=== PATIENT | female | born 1950 | race Caucasian/White ===

== ENCOUNTER 2021-10-06 09:06 | Emergency (ER) | payer MEDICARE, OTHER, SELFPAY ==
[2021-10-06 09:30] VITALS: BP 142/98; PULSE 107; RESP 18; TEMP 37; O2SAT 96; BMI 31.4
--- NOTE | 2021-10-06 10:07 | HMH.EDUTC ---
[facility] [place] Clinical Impression: Sinusitis Qualifiers: Sinusitis location: unspecified location Chronicity: unspecified Qualified Code(s): J32.9 - Chronic sinusitis, unspecified Disposition: Home, Self-Care Condition on Discharge: Good Instructions: Sinusitis, DI for Sinusitis Additional Instructions: *Monitor Temp, Over the counter Motrin or Tylenol as directed/as needed Tylenol every 4 hours and Motrin every 6 hours (as long as your family doctor has told you that you can take it) for fever or pain. and straight to ER if unable to lower temp less than 101.0 after medication given *Warm salt water gargles may help to soothe the throat *Throat Lozenges *Warm fluids like tea with honey may help to soothe the throat *Sleep elevated *Humidifier/Vaporizer Stop the Amoxicillin and start the Augmentin but make sure that you are taking it with food to help prevent stomach upset Follow up IMMEDIATELY for new or worsening symptoms or no Noticeable improvement over the next 48-72 hours. 911 for difficulty breathing or swallowing You were tested for today for COVID19 your test result should be back in the next 48-72 hours, you may check your results on the [facility] My health portal If you are positive someone from the Hospital will be calling you Make sure to drink plenty of water and gatoraid and take vitamin C, D and zinc Prescriptions: Benzonatate [Benzonatate 100mg cap] 100 mg PO Q8HP PRN #15 cap PRN Reason: Cough Transmission Status: Received by [facility] #[id number] Amoxicillin/Potassium Clav [Augmentin 875-125 Tablet] 1 tab PO Q12H 7 Days #14 tab Transmission Status: Received by [facility] #[id number] Referrals: Provider,Referral, [Primary Care Provider] - As needed Time of Disposition: 10:26 Medical Decision Making - Arnoldo Inquiry Pt receiving controlled substance: No Arnoldo was queried for this patient: No Vital Signs: 10/06/21 09:30 10/06/21 10:30 Temperature 98.6 F 98.6 F Temperature Source Oral Pulse Rate 107 H Pulse Rate [Right Brachial] 107 H Respiratory Rate 18 18 Blood Pressure 142/98 H Blood Pressure [Right Arm] 142/98 H Blood Pressure Mean [Right Arm] 112 Blood Pressure Source [Right Arm] Automatic Cuff Blood Pressure Position [Right Arm] Sitting 02 Sat by Pulse Oximetry 96 Oxygen Delivery Method Room Air - Lab Data Lab Results 10/06/21 10:24: Chlamy pneumoniae PCR Not detected, Adenovirus (PCR) Not detected, B. pertussis DNA (PCR) Not detected, Coronavirus OC43 (PCR) Not detected, Coronavirus HKU1 (PCR) Not detected, Coronavirus 229E (PCR) Not detected, SARS-CoV-2 (PCR) Not detected, Coronavirus NL63 (PCR) Not detected, Human Metapneumovir PCR Not detected, Influenza A (H1) PCR Not detected, Influ A (H1N1/09) PCR Not detected, Influenza A (H3) PCR Not detected, Influenza Type A (PCR) Not detected, Influenza Type B (PCR) Not detected, M. pneumoniae (PCR) Not detected, Parainfluenza 1 (PCR) Not detected, Parainfluenza 2 (PCR) Not detected, Parainfluenza 3 (PCR) Not detected, Parainfluenza 4 (PCR) Not detected, RSV (PCR) Not detected, Entero/Rhino (PCR) Not detected [facility] [place] - General Stated complaint: tooth pulled week ago, h/a, fever, body aches Time Seen by Provider: 10/06/21 10:18 Mode of Arrival: Ambulatory Source of Information: Patient Limitations: No Limitations Description of Symptoms (Recalled from Triage Doc. by RN): PATIENT C/O HEADACHE, FEVER, AND WEAKNESS. SHE REPORTS SYMPTOMS STARTED AFTER SHE HAD AN ABSCESSED TOOTH EXTRACTED LAST WEEK HEENT Symptoms (Recalled from RN notes): Yes Resp Symptoms (Recalled from RN notes): No Skin Symptoms (Recalled from RN notes): No MS Symptoms (Recalled from RN notes): No Functional Status (Recalled from RN notes): WNL - History of Present Illness Provider Complaint: Patient states that she has had a little cough States that she recently had a tooth pulled and they give her Amoxicillin State that she has wilfrido
[2021-10-06 10:30] VITALS: BP 142/98; PULSE 107; RESP 18; TEMP 37; O2SAT 96
[2021-10-06 10:39] LABS: Adenovirus,PCR Not Detected (NotDetected); Bordetella Pertussis Not Detected (NotDetected); Chlamydophila Pneumoniae, PCR Not Detected (NotDetected); Coronavirus 19, PCR Not Detected (NotDetected); Coronavirus 229E Not Detected (NotDetected); Coronavirus NL63 Not Detected (NotDetected); Coronavirus OC43 Not Detected (NotDetected); Coronovirus HKU1,PCR Not Detected (NotDetected); Human Metapneumovirus Not Detected (NotDetected); Influenza A, PCR Not Detected (NotDetected); Influenza AH1, 2009 Not Detected (NotDetected); Influenza AH1, PCR Not Detected (NotDetected); Influenza AH3,PCR Not Detected (NotDetected); Influenza B, PCR Not Detected (NotDetected); Mycoplasma Pneumoniae, PCR Not Detected (NotDetected); Parainfluenza 1, PCR Not Detected (NotDetected); Parainfluenza 2, PCR Not Detected (NotDetected); Parainfluenza 3, PCR Not Detected (NotDetected); Parainfluenza 4, PCR Not Detected (NotDetected); Respiratory Syncytial Virus Not Detected (NotDetected); Rhinovirus/Enterovirus Not Detected (NotDetected)
== END 2021-10-06 10:35 | disposition home or self-care (01) ==
PROVIDERS: Emergency Provider Nurse Practitioner
DX: J32.9 Chronic sinusitis, unspecified (principal); Z20.822 Contact with and (suspected) exposure to COVID-19
CPT/HCPCS: G0463; 87581; 87632; 87798; 99202; C9803; U0003; U0005

== ENCOUNTER 2021-10-09 09:06 | Emergency (ER) | payer MEDICARE, OTHER, SELFPAY ==
[2021-10-09 09:14] VITALS: BP 133/65; PULSE 89; RESP 14; TEMP 36.6; O2SAT 95; BMI 31.1
--- NOTE | 2021-10-09 09:40 | HMH.EDUTC ---
[facility] [place] Clinical Impression: Migraine Qualifiers: Migraine type: without aura Status migrainosus presence: without status migrainosus Intractability: not intractable Qualified Code(s): G43.009 - Migraine without aura, not intractable, without status migrainosus Disposition: Home, Self-Care Condition on Discharge: Good Instructions: DI for Migraine Additional Instructions: Continue to monitor your symptoms at home. If your condition worsens or any other concerns arise, please return to the emergency department. Referrals: Provider,Referral, [Primary Care Provider] - Time of Disposition: 16:00 Medical Decision Making - Medical Records Medical records reviewed: No: I reviewed the patient's medical records. - Arnoldo Inquiry Pt receiving controlled substance: No Vital Signs: 10/09/21 09:14 10/09/21 10:27 10/09/21 14:00 Temperature 98 F 98.3 F 98 F Temperature Source Oral Oral Oral Pulse Rate 78 Pulse Rate [Left] 89 84 Respiratory Rate 14 18 18 Blood Pressure 142/74 H Blood Pressure [Right Arm] 133/65 146/94 H Blood Pressure Mean [Right Arm] 87 111 Blood Pressure Position Sitting Blood Pressure Position [Right Arm] Sitting 02 Sat by Pulse Oximetry 95 98 Oxygen Delivery Method Room Air Room Air - Lab Data Lab Results 10/09/21 09:46: Influenza Type A Ag Negative, Influenza Type B Ag Negative 10/09/21 09:46: Strep Scn Rapid [facility] Negative 10/09/21 11:25: WBC 7.9, RBC 5.37, Hgb 16.0, Hct 47.9 H, MCV 89.2, MCH 29.7, MCHC 33.3, RDW 12.8, Plt Count 355, MPV 7.9, Neut % (Auto) 71.0, Lymph % (Auto) 20.0, Antelope % (Auto) 6.1, Eos % (Auto) 2.3, Baso % (Auto) 0.7, Neut # (Auto) 5.6, Lymph # (Auto) 1.6, Antelope # (Auto) 0.5, Eos # (Auto) 0.2, Baso # (Auto) 0.1 10/09/21 11:25: Sodium 134 L, Potassium 4.4, Chloride 100, Carbon Dioxide 28, Anion Gap 10.4, BUN 21 H, Creatinine 0.90, Estimated Creat Clear 76, Estimated GFR 62, Est GFR ( Amer) 75, Glucose 90, Calcium 9.4, Total Bilirubin 1.1, AST 32, ALT 14, Alkaline Phosphatase 49, Total Protein 7.5, Albumin 4.4, Globulin 3.1, Albumin/Globulin Ratio 1.4 Result diagrams: 10/09/21 11:25 10/09/21 11:25 Orders (Tests/Meds): ED MEDICATIONS Discontinued Medications Generic Name Dose Route Start Last Admin Trade Name Freq PRN Reason Stop Dose Admin Hydromorphone HCl 0.5 mg 10/09/21 18:25 10/09/21 13:17 Hydromorphone 2mg/Ml Syringe IV 10/09/21 18:26 0.5 mg ONCE ONE Administration Prochlorperazine Edisylate 10 mg 10/09/21 11:01 10/09/21 12:00 Prochlorperazine 10mg/2ml Vial IV 10/09/21 11:02 10 mg ONCE ONE Administration ORDERS Category Date Time Status Strep Screen Confirmation Stat Micro 10/09/21 09:46 Received [facility] [place] HPI - General Stated complaint: weakness, JONES, muscle pain Time Seen by Provider: 10/09/21 09:41 Mode of Arrival: Ambulatory Source of Information: Patient Limitations: No Limitations Description of Symptoms (Recalled from Triage Doc. by RN): pt c/o a JONES, weakness and body aches. pt states she had a an abcess tooth taken out on the . HEENT Symptoms (Recalled from RN notes): Yes Resp Symptoms (Recalled from RN notes): No Skin Symptoms (Recalled from RN notes): No MS Symptoms (Recalled from RN notes): No Functional Status (Recalled from RN notes): wnl - History of Present Illness Provider Complaint: She is back today with continued headache. She states she has been having a continious headache for the past 4 days. She tested negative for covid-19, influenza and other respiratory viruses 3 days ago. - Related Data Previous Rx's Medication Instructions Recorded Amoxicillin/Potassium Clav 1 tab PO Q12H 7 Days #14 tab 10/06/21 [Augmentin 875-125 Tablet] Benzonatate [Benzonatate 100mg 100 mg PO Q8HP PRN #15 cap 10/06/21 cap] Allergies Allergy/AdvReac Type Severity Reaction Status Date / Time No Known Allergies Allergy Verified 10/06/21 09:57 - Worker's Comp I
[2021-10-09 09:59] LABS: UTC Strep Screen (Rapid) Negative (Negative)
[2021-10-09 10:00] LABS: UTC Influenza A Antigen Negative (Negative); UTC Influenza B Antigen Negative (Negative)
--- NOTE | 2021-10-09 10:24 | ECG_ITS ---
APPROVED REPORT Exam: Resting ECG HR:75 bpm ECG Measurements Heart Rate 75 AXES DE 175 P 47 QRSd 96 QRS 58 QT 357 T 5 QTc 386 Conclusion SINUS RHYTHM POSSIBLE LEFT ATRIAL ENLARGEMENT [-0.1mV P-WAVE IN V1/V2] NONSPECIFIC T-WAVE ABNORMALITY BORDERLINE ECG UNCONFIRMED REPORT Electronically signed by : Hans Cardozo MD 10/10/2021 17:28:14
[2021-10-09 10:27] VITALS: BP 146/94; PULSE 84; RESP 18; TEMP 36.8; O2SAT 98; BMI 31.1
--- NOTE | 2021-10-09 10:55 | CT_ITS ---
PROCEDURE INFORMATION: Exam: CT Head Without Contrast Exam date and time: 10/09/2021 10:55 AM Age: 71 years old Clinical indication: Dizziness; Additional info: JONES, dizziness TECHNIQUE: Imaging protocol: Computed tomography of the head without contrast. Radiation optimization: All CT scans at this facility use at least one of these dose optimization techniques: automated exposure control; mA and/or kV adjustment per patient size (includes targeted exams where dose is matched to clinical indication); or iterative reconstruction. COMPARISON: No relevant prior studies available. FINDINGS: Brain: Normal. No hemorrhage. Unremarkable white matter. No mass effect. Cerebral ventricles: No ventriculomegaly. Paranasal sinuses: Mild mucosal thickening of the right maxillary sinus. Mastoid air cells: Visualized mastoid air cells are well aerated. Bones/joints: Unremarkable. No acute fracture. Soft tissues: Unremarkable. IMPRESSION: No acute intracranial abnormality. Please note that MRI is more sensitive for early changes of acute ischemia.
--- NOTE | 2021-10-09 11:02 | PC.NURSE ---
pt to radiology
--- NOTE | 2021-10-09 11:08 | PC.NURSE ---
patient back from radiology. Warm blanket given to pt at this time. hooked back up to vital signs. call light within reach.
--- NOTE | 2021-10-09 12:00 | PC.NURSE ---
pt resting updated on plan of care
--- NOTE | 2021-10-09 12:12 | HMH.EDGENADL ---
ED Disposition Clinical Impression: Migraine Qualifiers: Migraine type: without aura Status migrainosus presence: without status migrainosus Intractability: not intractable Qualified Code(s): G43.009 - Migraine without aura, not intractable, without status migrainosus Disposition: Home, Self-Care Condition on Discharge: Good Additional Instructions: Continue to monitor your symptoms at home. If your condition worsens or any other concerns arise, please return to the emergency department. Referrals: Provider,Referral, [Primary Care Provider] - - Critical Care Critical Care Time: No Attestation: On 10/09/21, the high probability of a clinically significant, sudden or life threatening deterioration of the following system(s) required my full and direct attention, intervention and personal management. The time I documented below is in addition to time spent performing reported procedures but includes the following listed in this critical care notation. Medical Decision Making - Medical Records Medical records reviewed: Yes: I reviewed the patient's medical records. - Arnoldo Inquiry Pt receiving controlled substance: No Vital Signs: 10/09/21 09:14 10/09/21 10:27 Temperature 98 F 98.3 F Temperature Source Oral Oral Pulse Rate [Left] 89 84 Respiratory Rate 14 18 Blood Pressure [Right Arm] 133/65 146/94 H Blood Pressure Mean [Right Arm] 87 111 Blood Pressure Position [Right Arm] Sitting 02 Sat by Pulse Oximetry 95 98 Oxygen Delivery Method Room Air - Lab Data Lab Results 10/09/21 09:46: Influenza Type A Ag Negative, Influenza Type B Ag Negative 10/09/21 09:46: Strep Scn Rapid Clinic Negative 10/09/21 11:25: Sodium 134 L, Potassium 4.4, Chloride 100, Carbon Dioxide 28, Anion Gap 10.4, BUN 21 H, Creatinine 0.90, Estimated Creat Clear 76, Estimated GFR 62, Est GFR ( Amer) 75, Glucose 90, Calcium 9.4, Total Bilirubin 1.1, AST 32, ALT 14, Alkaline Phosphatase 49, Total Protein 7.5, Albumin 4.4, Globulin 3.1, Albumin/Globulin Ratio 1.4 Result diagrams: 10/09/21 11:25 Orders (Tests/Meds): ED MEDICATIONS Discontinued Medications Generic Name Dose Route Start Last Admin Trade Name Freq PRN Reason Stop Dose Admin Prochlorperazine Edisylate 10 mg 10/09/21 11:01 10/09/21 12:00 Prochlorperazine 10mg/2ml Vial IV 10/09/21 11:02 10 mg ONCE ONE Administration ORDERS Category Date Time Status Complete Blood Count Auto Diff Stat Lab 10/09/21 11:25 Received Blood Culture Stat Micro 10/09/21 10:55 Ordered Strep Screen Confirmation Stat Micro 10/09/21 09:46 Received Medical Decision Narrative: Patient is a 71-year-old female with a history of migraines presenting for chief complaint of persistent headache for 1 week. Differential diagnosis includes, but is not limited to, tension headache, migraine, status migrainosus, underlying infection, viral syndrome such as COVID-19. Initial exam, patient is hemodynamically stable nontoxic-appearing. She has a nonfocal neurological exam with intact cerebellar function. Patient is concerned for bacteremia though I have a low suspicion for underlying systemic infection. Exam of her oral cavity shows no abscess, drainage and she has no tenderness along her jaw which makes a dental infection unlikely. She has a negative jolt test, lowering the suspicion significantly for meningitis. She was evaluated CBC, CMP, blood cultures and CT head. She was treated with Compazine. CT head shows no acute intracranial findings. CMP without abnormalities. CBC pending at this time but patient is requesting to be discharged. She reports significant improvement, and does not need additional medications. She was advised to follow up with her primary care physician regarding labwork. Discharged in a stable condition. General Adult HPI - General Chief complaint: Headache Stated complaint: weakness, JONES, muscle pain Time Seen by Provider: 10/09/21 09:41 Mode of
[2021-10-09 12:26] LABS: Chloride 100 mmol/L (98-107); Potassium 4.4 mmoL/L (3.5-5.1); Sodium 134 mmol/L (136-145)
[2021-10-09 12:29] LABS: Alanine Aminotransferase 14 U/L (12-78); Albumin Level 4.4 g/dl (3.5-5.0); Albumin/Globulin Ratio 1.4 (1.1-1.8); Alkaline Phosphatase 49 U/L (38-126); Anion Gap 10.4 mEq/L (5-15); Aspartate Amino Transferase 32 U/L (14-36); Bilirubin,Total 1.1 mg/dl (0.2-1.3); Blood Urea Nitrogen 21 mg/dl (7-17); Carbon Dioxide 28 mmol/L (22.0-30.0); Creatinine Clearance Estimated 76 mL/min (50-200); Estimated Glomerular Filt Rate 62 ml/min (>60); GFR (African American) 75 ML/MIN (>60); Globulin 3.1 g/dL (1.3-3.2); Total Protein,Serum 7.5 g/dl (6.3-8.2)
[2021-10-09 12:30] LABS: Calcium 9.4 mg/dl (8.4-10.2); Glucose 90 mg/dl (74-100)
[2021-10-09 14:00] VITALS: BP 142/74; PULSE 78; RESP 18; TEMP 36.6; O2SAT 98
[2021-10-09 14:19] LABS: Basophils # 0.1 K/mm3 (0-0.2); Basophils % 0.7 % (0.1-2.0); Eosinophils # 0.2 K/mm3 (0.0-0.4); Eosinophils % 2.3 % (0.1-12.0); Hematocrit 47.9 % (37.0-47.0); Lymphocytes # 1.6 K/mm3 (0.7-4.5); Mean Corpuscular HGB Conc 33.3 g/dL (31.8-35.4); Mean Corpuscular Hemoglobin 29.7 pg (27.0-31.2); Mean Corpuscular Volume 89.2 fl (81-99); Mean Platelet Volume 7.9 fl (7.4-10.4); Monocytes # 0.5 K/mm3 (0.1-1.0); Monocytes % 6.1 % (1.7-9.3); Neutrophils # 5.6 K/mm3 (1.8-7.8); Platelet Count 355 K/mm3 (142-424); Red Blood Count 5.37 M/mm3 (4.20-5.40); Red Cell Distribution Width 12.8 % (11.5-17.5); White Blood Count 7.9 K/mm3 (4.8-10.8)
== END 2021-10-09 14:00 | disposition home or self-care (01) ==
LOC: UTC 09:12 → ER 10:18
PROVIDERS: Emergency Medicine; Emergency Provider Nurse Practitioner Family
DX: G43.009 Migraine without aura, not intractable, without status migrainosus (principal)
CPT/HCPCS: 70450; 80053; 85025; 87804; 87880; 93005; 96374; 96375; 99282

== ENCOUNTER → 2021-10-19 16:00 | Outpatient (CLI) | payer MEDICARE, OTHER, SELFPAY | PROVIDERS: Visit Provider Nurse Practitioner Family | DX: N39.0 Urinary tract infection, site not specified (principal) | CPT/HCPCS: 87086 ==

== ENCOUNTER → 2021-10-20 09:57 | Outpatient (CLI) | payer MEDICARE, OTHER, SELFPAY ==
--- NOTE | 2021-10-20 09:58 | MR_ITS ---
FINAL REPORT CLINICAL HISTORY: Migraines with history of breast cancer. HEADACHE X2WKS. DIZZINESS. PRIOR CT 10-09-21 FINDINGS: Multiplanar MR imaging of the brain was performed without contrast. There is no evidence of intracranial hemorrhage or mass. The ventricular size is normal. There is no evidence of shift of the midline structures. No area of restricted diffusion is identified. The posterior fossa and brainstem have an unremarkable appearance. Normal major vessel vascular flow voids are seen. There is mild mucosal thickening in the sinuses. IMPRESSION: Unremarkable brain with no focal abnormality identified. Reviewed, Interpreted and Dictated by Daljit Sung III, MD Transcribed by Silvina Valles Authenticated by Daljit Sung III, MD on 10/20/2021 11:41:13 AM [facility]
== END ==
PROVIDERS: PCP Nurse Practitioner Family; Visit Provider Nurse Practitioner Family
DX: G43.009 Migraine without aura, not intractable, without status migrainosus (principal)
CPT/HCPCS: 70551

== ENCOUNTER → 2021-11-01 12:04 | Outpatient (CLI) | payer MEDICARE, OTHER, SELFPAY ==
[2021-11-01 13:48] LABS: Thyroid Stimulating Hormone 0.64 uIU/mL (0.465-4.68)
[2021-11-01 14:22] LABS: Vitamin B12 336 pg/mL (239-931)
[2021-11-01 14:27] LABS: Folate 6.86 ng/mL
== END ==
PROVIDERS: PCP Nurse Practitioner Family; Visit Provider Nurse Practitioner Family
DX: G47.00 Insomnia, unspecified (principal); G47.9 Sleep disorder, unspecified; R03.0 Elevated blood-pressure reading, without diagnosis of hypertension; R40.0 Somnolence; R51.9 Headache, unspecified; Z86.69 Personal history of other diseases of the nervous system and sense organs; G47.33 Obstructive sleep apnea (adult) (pediatric)
CPT/HCPCS: 36415; 82607; 82746; 84443; G0399

== ENCOUNTER → 2022-04-07 11:45 | Outpatient (CLI) | payer MEDICARE, OTHER, SELFPAY ==
--- NOTE | 2022-04-07 11:50 | XR_ITS ---
FINAL REPORT CLINICAL HISTORY: knee pain FINDINGS: 4 views of the right knee were obtained. There is no prior exam for comparison. There is no acute fracture or dislocation. Degenerative joint disease is most pronounced in the patellofemoral compartment. There is mild osteopenia. The soft tissues are unremarkable. IMPRESSION: No acute osseous abnormality. Reviewed, Interpreted and Dictated by Natalie Galarza MD Transcribed by Mann Guerrero Authenticated and [facility]
--- NOTE | 2022-04-07 11:50 | XR_ITS ---
FINAL REPORT CLINICAL HISTORY: knee pain FINDINGS: 4 views of the left knee were obtained. There is no prior exam available for comparison. There is no acute fracture or dislocation. Degenerative joint disease is most pronounced in the patellofemoral compartment. The bones are osteopenic. The soft tissues are unremarkable. IMPRESSION: No acute process. Reviewed, Interpreted and Dictated by Natalie Galarza MD Transcribed by Mann Guerrero Authenticated and [facility]
== END ==
PROVIDERS: PCP Physician Assistant; Visit Provider Orthopaedic Surgery
DX: M25.561 Pain in right knee (principal); M25.562 Pain in left knee
CPT/HCPCS: 73564; 97760

== ENCOUNTER 2022-04-07 13:59 | Outpatient (RCR) | payer MEDICARE, OTHER, SELFPAY | END 2022-04-07 15:00 | disposition home or self-care (01) | LOC: PT 13:59 | PROVIDERS: Visit Provider Orthopaedic Surgery | DX: M17.0 Bilateral primary osteoarthritis of knee (principal) | CPT/HCPCS: 97760 ==

== ENCOUNTER → 2022-08-10 12:00 | Outpatient (CLI) | payer MEDICARE, OTHER, SELFPAY ==
[2022-08-10 14:27] LABS: Adenovirus,PCR Not Detected (NotDetected); Bordetella Pertussis Not Detected (NotDetected); Chlamydophila Pneumoniae, PCR Not Detected (NotDetected); Coronavirus 19, PCR Not Detected (NotDetected); Coronavirus 229E Not Detected (NotDetected); Coronavirus NL63 Not Detected (NotDetected); Coronavirus OC43 Not Detected (NotDetected); Coronovirus HKU1,PCR Not Detected (NotDetected); Human Metapneumovirus Not Detected (NotDetected); Influenza A, PCR Not Detected (NotDetected); Influenza AH1, 2009 Not Detected (NotDetected); Influenza AH1, PCR Not Detected (NotDetected); Influenza AH3,PCR Not Detected (NotDetected); Influenza B, PCR Not Detected (NotDetected); Mycoplasma Pneumoniae, PCR Not Detected (NotDetected); Parainfluenza 1, PCR Not Detected (NotDetected); Parainfluenza 2, PCR Not Detected (NotDetected); Parainfluenza 3, PCR Not Detected (NotDetected); Parainfluenza 4, PCR Not Detected (NotDetected); Respiratory Syncytial Virus Not Detected (NotDetected); Rhinovirus/Enterovirus Not Detected (NotDetected)
== END ==
PROVIDERS: PCP Nurse Practitioner Family; Visit Provider Nurse Practitioner Family
DX: N39.0 Urinary tract infection, site not specified (principal); Z20.822 Contact with and (suspected) exposure to COVID-19; B96.29 Other Escherichia coli [E. coli] as the cause of diseases classified elsewhere
CPT/HCPCS: 87086; 87088; 87186; 87581; 87632; 87798; C9803; U0003; U0005

== ENCOUNTER → 2022-10-13 09:01 | Outpatient (CLI) | payer MEDICARE, OTHER, SELFPAY ==
--- NOTE | 2022-10-13 09:09 | XR_ITS ---
FINAL REPORT CLINICAL HISTORY: knee pain COMPARISON: 04/07/2022 FINDINGS: Right knee Three views were obtained. There is no acute fracture or dislocation. There are mild and moderate degenerative changes, similar to previous. No joint effusion is identified. No soft tissue abnormality is identified. IMPRESSION: Degenerative changes without acute process. Reviewed, Interpreted and Dictated by Daljit Sung III, MD Transcribed by Melisa Carrillo Authenticated and [facility]
--- NOTE | 2022-10-13 09:09 | XR_ITS ---
FINAL REPORT CLINICAL HISTORY: knee pain COMPARISON: 04/07/2022 FINDINGS: Left knee Three views were obtained. There is no acute fracture or dislocation. There are mild and moderate degenerative changes, similar to previous. No joint effusion is identified. No soft tissue abnormality is identified. IMPRESSION: Degenerative changes without acute process. Reviewed, Interpreted and Dictated by Daljit Sung III, MD Transcribed by Melisa Carrillo Authenticated and [facility]
== END ==
PROVIDERS: PCP Emergency Medicine; Visit Provider Orthopaedic Surgery
DX: M25.561 Pain in right knee (principal); M25.562 Pain in left knee
CPT/HCPCS: 73562

== ENCOUNTER → 2023-01-24 23:16 | Outpatient (CLI) | payer MEDICARE, OTHER, SELFPAY ==
[2023-01-24 18:50] LABS: Basophils # 0.1 K/mm3 (0-0.2); Basophils % 0.8 % (0.1-2.0); Eosinophils # 0.3 K/mm3 (0.0-0.4); Eosinophils % 4.9 % (0.1-12.0); Hematocrit 47.8 % (37.0-47.0); Hemoglobin 15.6 g/dL (12.2-16.2); Lymphocytes # 1.7 K/mm3 (0.7-4.5); Lymphocytes % 26.2 % (10-50); Mean Corpuscular HGB Conc 32.7 g/dL (31.8-35.4); Mean Corpuscular Hemoglobin 29.6 pg (27.0-31.2); Mean Corpuscular Volume 90.6 fl (81-99); Mean Platelet Volume 8.9 fl (7.4-10.4); Monocytes # 0.4 K/mm3 (0.1-1.0); Monocytes % 5.6 % (1.7-9.3); Neutrophils % 62.6 % (37.0-80.0); Platelet Count 328 K/mm3 (142-424); Red Blood Count 5.27 M/mm3 (4.20-5.40); Red Cell Distribution Width 13.5 % (11.5-17.5); White Blood Count 6.4 K/mm3 (4.8-10.8)
[2023-01-24 20:13] LABS: Alanine Aminotransferase 19 U/L (12-78); Albumin Level 4.1 g/dl (3.5-5.0); Alkaline Phosphatase 63 U/L (38-126); Anion Gap 18.1 mEq/L (5-15); Aspartate Amino Transferase 30 U/L (14-36); Bilirubin,Total 0.8 mg/dl (0.2-1.3); Blood Urea Nitrogen 18 mg/dl (7-17); Calcium 8.8 mg/dl (8.4-10.2); Carbon Dioxide 23 mmol/L (22.0-30.0); Chloride 101 mmol/L (98-107); Chol/HDL Ratio 1.9 (1-3.5); Cholesterol 137 mg/dl (140-200); Estimated Glomerular Filt Rate 55 ml/min (>60); GFR (African American) 66 ML/MIN (>60); Globulin 2.1 g/dL (1.3-3.2); Glucose 87 mg/dl (74-100); HDL Cholesterol 71 mg/dl (40-60); Potassium 4.1 mmoL/L (3.5-5.1); Sodium 138 mmol/L (136-145); Total Protein,Serum 6.2 g/dl (6.3-8.2); Triglycerides 110 mg/dl (30-150); VLDL Cholesterol 22 mg/dL (0-40)
[2023-01-24 20:25] LABS: Direct LDL Cholesterol 49.94 mg/dL (100-129)
[2023-01-24 20:31] LABS: 25-OH Vitamin D, Total 33.4 ng/mL (30-100); T4 (Thyroxine) 10.4 ug/dl (5.53-11.0)
[2023-01-24 20:44] LABS: Thyroid Stimulating Hormone 0.85 uIU/mL (0.465-4.68)
== END ==
PROVIDERS: PCP Nurse Practitioner Family; Visit Provider Nurse Practitioner Family
DX: I10 Essential (primary) hypertension (principal); R03.0 Elevated blood-pressure reading, without diagnosis of hypertension; E55.9 Vitamin D deficiency, unspecified
CPT/HCPCS: 80053; 80061; 82306; 84436; 84443; 85025

== ENCOUNTER → 2023-05-15 09:42 | Outpatient (CLI) | payer MEDICARE, OTHER, SELFPAY ==
--- NOTE | 2023-05-15 09:43 | MM_ITS ---
PROCEDURE INFORMATION: Exam: MG Bilateral Screening 3D Mammography Exam date and time: 05/15/2023 9:45 AM Age: 72 years old Clinical indication: Screening examination; Personal history of left breast cancer; Radiation therapy and chemotherapy TECHNIQUE: Imaging protocol: Bilateral Screening tomosynthesis and 2D mammography including computer-aided detection (CAD) when performed. COMPARISON: 1. MG MAMMOGRAPHY BREAST DIAGNOSTIC TOMOSYNTHESIS LEFT 11/08/2022 9:40 AM 2. MG MAMMOGRAPHY BREAST DIAGNOSTIC TOMOSYNTHESIS LEFT 05/11/2022 10:13 AM FINDINGS: MAMMOGRAPHY: Breast composition: The breasts are almost entirely fatty. Mass: None. Architectural distortion: Stable post operative architectural distortion in the left upper outer quadrant due to prior lumpectomy for carcinoma. Calcifications: No suspicious calcifications. Asymmetric density: None. Skin thickening: None. Axillary adenopathy: None. IMPRESSION: No mammographic evidence of malignancy. Annual screening is recommended unless otherwise clinically indicated. ASSESSMENT: BI-RADS Category 2: Benign
== END ==
PROVIDERS: PCP Nurse Practitioner Family; Visit Provider Nurse Practitioner Family
DX: Z12.31 Encounter for screening mammogram for malignant neoplasm of breast (principal)
CPT/HCPCS: 77063; 77067

== ENCOUNTER → 2023-06-27 08:51 | Outpatient (CLI) | payer MEDICARE, OTHER, SELFPAY ==
[2023-06-27 11:01] LABS: Blood Urea Nitrogen 25 mg/dl (7-17); Estimated Glomerular Filt Rate 49 ml/min (>60); GFR (African American) 59 ML/MIN (>60)
== END ==
PROVIDERS: PCP Internal Medicine; Visit Provider Internal Medicine
DX: I10 Essential (primary) hypertension (principal)
CPT/HCPCS: 36415; 82565; 84520

== ENCOUNTER → 2023-06-29 07:24 | Outpatient (CLI) | payer MEDICARE, OTHER, SELFPAY ==
--- NOTE | 2023-06-29 07:24 | MR_ITS ---
FINAL REPORT CLINICAL HISTORY: palpable mass. put marker on spot. FINDINGS: Multiplanar MR imaging of the abdomen was performed without and with contrast. No prior exam is available for comparison. There is focal abnormal signal in the lateral segment of the left hepatic lobe measuring 22 x 11 mm which may represent septated cystic mass or focal biliary duct dilatation. Heterogeneous low signal in the region of the gallbladder Evette percent stone filled gallbladder. A marker was placed at the midline, at the site of palpable abnormality. There is an underlying supraumbilical hernia in this region containing fat. Hernia sac measures 6.5 cm. Hernia orifice measures 2.3 cm. No abnormal fluid collection is seen. No abnormal contrast enhancement is seen on the postcontrast images. IMPRESSION: Septated cystic mass in the lateral segment of the left hepatic lobe which may represent septated cystic mass or focal biliary ductal dilatation. Recommend liver mass protocol CT or MRI in 3-6 months for further evaluation. Heterogeneous low signal in the region of the gallbladder which may represent stone filled gallbladder. Recommend right upper quadrant ultrasound or nuclear medicine hepatobiliary scan for further evaluation. Supraumbilical hernia containing fat at site of palpable abnormality. Reviewed, Interpreted and Dictated by Daljit Sung III, MD Transcribed by Hailey Valiente Authenticated and [facility]
== END ==
PROVIDERS: PCP Nurse Practitioner Family; Visit Provider Internal Medicine
DX: R19.00 Intra-abdominal and pelvic swelling, mass and lump, unspecified site (principal)
CPT/HCPCS: 74183; A9576

== ENCOUNTER → 2023-07-06 09:24 | Outpatient (CLI) | payer MEDICARE, OTHER, SELFPAY ==
[2023-07-06 09:45] LABS: Basophils # 0.1 K/mm3 (0-0.2); Basophils % 0.9 % (0.1-2.0); Eosinophils # 0.4 K/mm3 (0.0-0.4); Eosinophils % 4.8 % (0.1-12.0); Hematocrit 46.2 % (37.0-47.0); Hemoglobin 15.8 g/dL (12.2-16.2); Lymphocytes % 25.3 % (10-50); Mean Corpuscular HGB Conc 34.1 g/dL (31.8-35.4); Mean Corpuscular Hemoglobin 31.4 pg (27.0-31.2); Mean Corpuscular Volume 92.1 fl (81-99); Mean Platelet Volume 7.2 fl (7.4-10.4); Monocytes # 0.5 K/mm3 (0.1-1.0); Monocytes % 6.2 % (1.7-9.3); Neutrophils % 62.8 % (37.0-80.0); Platelet Count 265 K/mm3 (142-424); Red Blood Count 5.01 M/mm3 (4.20-5.40); Red Cell Distribution Width 13.4 % (11.5-17.5)
--- NOTE | 2023-07-06 10:08 | ECG_ITS ---
APPROVED REPORT Exam: Resting ECG HR:71 bpm ECG Measurements Heart Rate 71 AXES AZ 195 P 48 QRSd 95 QRS 27 QT 362 T -9 QTc 384 Conclusion SINUS RHYTHM WITH OCCASIONAL VENTRICULAR PREMATURE COMPLEXES Isolated Q in III ABNORMAL ECG UNCONFIRMED REPORT Electronically signed by : Hans Cardozo MD 07/06/2023 17:04:17
[2023-07-06 10:20] LABS: Chloride 104 mmol/L (98-107); Potassium 3.9 mmoL/L (3.5-5.1); Sodium 140 mmol/L (136-145)
[2023-07-06 10:23] LABS: Alanine Aminotransferase 19 U/L (12-78); Albumin Level 4.4 g/dl (3.5-5.0); Albumin/Globulin Ratio 1.8 (1.1-1.8); Alkaline Phosphatase 55 U/L (38-126); Anion Gap 10.9 mEq/L (5-15); Aspartate Amino Transferase 31 U/L (14-36); Bilirubin,Total 0.9 mg/dl (0.2-1.3); Blood Urea Nitrogen 25 mg/dl (7-17); Calcium 9.4 mg/dl (8.4-10.2); Carbon Dioxide 29 mmol/L (22.0-30.0); Estimated Glomerular Filt Rate 54 ml/min (>60); GFR (African American) 66 ML/MIN (>60); Globulin 2.4 g/dL (1.3-3.2); Glucose 87 mg/dl (74-100); Total Protein,Serum 6.8 g/dl (6.3-8.2)
[2023-07-06 10:59] LABS: Microscopic, Urine URINE MICROSCOPIC (MICROSCOPIC)
[2023-07-06 12:15] LABS: Appearance,Urine CLEAR (Clear); Bilirubin,Urine Negative (Negative); Blood, Urine TRACE-I (Negative); Color,Urine YELLOW (Yellow); Glucose,Urine (UA) Negative (Negative); Ketones,Urine Negative (Negative); Leukocyte Esterase,Urine 3+ (Negative); Nitrate,Urine Negative (Negative); PH,Urine 6.5 (5.0-8.5); Protein,Urine Negative (Negative); Specific Gravity, Urine 1.015 (1.005-1.030); Urobilinogen,Urine 0.2 EU/dl (0.2)
[2023-07-06 12:42] LABS: Bacteria,Urine 1+ /lpf
== END ==
PROVIDERS: PCP Internal Medicine; Visit Provider Surgery
DX: R16.0 Hepatomegaly, not elsewhere classified (principal); R19.02 Left upper quadrant abdominal swelling, mass and lump; Z01.818 Encounter for other preprocedural examination; B96.89 Other specified bacterial agents as the cause of diseases classified elsewhere; R82.90 Unspecified abnormal findings in urine
CPT/HCPCS: 36415; 80053; 81001; 85025; 87086; 93005

== ENCOUNTER → 2023-07-25 09:36 | Outpatient (CLI) | payer MEDICARE, OTHER, SELFPAY ==
[2023-07-25 09:41] LABS: Microscopic, Urine URINE MICROSCOPIC (MICROSCOPIC)
[2023-07-25 09:52] LABS: Appearance,Urine SL CLOUDY (Clear); Bilirubin,Urine Negative (Negative); Blood, Urine Negative (Negative); Color,Urine YELLOW (Yellow); Glucose,Urine (UA) Negative (Negative); Ketones,Urine Negative (Negative); Leukocyte Esterase,Urine 3+ (Negative); Nitrate,Urine Negative (Negative); PH,Urine 6.5 (5.0-8.5); Protein,Urine Negative (Negative); Urobilinogen,Urine 0.2 EU/dl (0.2)
[2023-07-25 10:09] LABS: Bacteria,Urine 1+ /lpf; RBC,Urine Occasional #/hpf (0-3)
== END ==
PROVIDERS: PCP Nurse Practitioner Family; Visit Provider Surgery
DX: K43.9 Ventral hernia without obstruction or gangrene (principal); N39.0 Urinary tract infection, site not specified
CPT/HCPCS: 81001; 87086

== ENCOUNTER 2023-07-26 07:34 | Day surgery (SDC) | payer MEDICARE, OTHER, SELFPAY ==
[2023-07-25 15:10] VITALS: BMI 33.4
[2023-07-26] VITALS (11 sets, daily range): BP systolic 132–177; BP diastolic 64–101; PULSE 78–86; RESP 14–18; TEMP 36.2–36.5; O2SAT 93–98
--- NOTE | 2023-07-26 08:27 | EXP.ANES.CKL ---
[facility] Disclaimer: The information contained in this section may have been updated after the patient was seen, as this information can be updated by other users. Medical History History of breast cancer History of hypertension Surgical History History of hernia repair History of hysterectomy History of lumpectomy of left breast Family History Other Family history of CHF (congestive heart failure) Family history of kidney disease Social History Smoking Status: Never smoker alcohol intake: current substance use type: denies use current occupational status: other Travel in the last 8 weeks: None household members: spouse housing: house [facility] Anesthesia Checklist Patient Identification Patient Identification: Arm Band and Verbal (Name & ) Structural Data Admitted From: Home Planned Operative Procedure/s: Epigastric hernia repair Consent for Planned Operative Procedure(s) Verified: Yes NPO Status Verified Time NPO: 00:00 Additional verifications Anesthesia Reactions: No Hx Blood Transfusions: No Blood Transfusion Reaction: No Airway Assessment Mallampati Score:: Class II C-Spine Mobility Assessed: Yes TMJ Mobility Assessed: Yes Dentition: Good Dentition (Overbite) Neurological Assessment Level of Consciousness: Awake Hx Seizures: No Numbness or tingling in extremities: No Anesthesia Plan Anesthesia Risk discussed: Yes Anesthesia Plan: Verified ASA Class: II Anesthesia Type: General
--- NOTE | 2023-07-26 08:40 | P.PNANES_ITS ---
[facility] Anesthesia Record Part I Anesthesia Record I Intake, IV Amount: 1,700 Hydration: Adequate Estimated blood loss (mL): 25 Urine output (mL): 0 Blood Products used (#): none Blood Pressure: 132/64 SaO2: 95 (on 4L/min NC) Pulse Rate: 80 Airway Patency: Patent Respiratory Rate: 18 Temperature: 97.2 F Patient is:: Awake, Nasal O2 (4L/min NC) and Stable Stable to PACU at:: 08:41
--- NOTE | 2023-07-26 09:51 | P.OP_ITS ---
Date of procedure: 07/26/23 Pre-op Diagnosis:: Epigastric hernia Post-op Diagnosis:: Same Procedure performed:: Open repair of epigastric hernia with 6.4 cm Ventralex mesh Surgeon:: Bill Fink MD Anesthesia: GETA Estimated blood loss (mL): 15 Operative findings:: 2.5 cm defect Partially-incarcerated omentum reduced 6.4 cm Ventralex mesh utilized for repair Operative note:: After informed consent was obtained the patient was taken to the operating room and placed in the supine position. General anesthesia was induced and her abdomen was prepped and draped in a sterile fashion. A longitudinal incision was made with scalpel overlying the palpable defect. A combination of electrocautery and blunt dissection was utilized to transect through the subcutaneous tissue. Incarcerated omentum was encountered. Partially- incarcerated omentum encountered. The omentum was reduced. A 6.4 cm Ventralex mesh was placed in position and secured with interrupted 0 Ethibond. A primary repair with 0 Ethibond was then made in an interrupted fashion overlying the mesh repair. The wound was irrigated. Skin was then closed with running 3-0 Monocryl STRATAFIX. Dressings were applied and the patient was transferred to recovery in stable condition. Condition: stable Disposition: PACU Specimens:: None Complications:: No immediate
--- NOTE | 2023-07-26 13:29 | P.PNANES_ITS ---
[facility] Anesthesia Record Part I Anesthesia Record I Intake, IV Amount: 1,100 Hydration: Adequate Estimated blood loss (mL): 25 Urine output (mL): 0 Blood Products used (#): none Blood Pressure: 149/86 SaO2: 96 Pulse Rate: 86 Airway Patency: Patent Respiratory Rate: 16 Temperature: 97.1 F Patient is:: Awake and Stable Stable to PACU at:: 10:02
--- NOTE | 2023-07-30 07:19 | EXP.ANES.II ---
[facility] Anesthesia Record Part II Anesthesia Record Part II Discharge Time: 10:37 Destination: Surgical Day Care (OP Surgery) PACU nurse assessment reviewed?: Yes Patient Condition:: Good Anesthesia Complications:: None Swallowing reflex intact?: Yes Airway Patency: Patent Cyanosis?: No Blood Pressure: 171/82 SaO2: 94 Respiratory Rate: 16 Pulse Rate: 81 Temperature: 97.6 F Mental Status: Alert & Oriented Pain level:: 2 Nausea and/or vomitting:: None Intake, IV Amount: 0 Hydration: Adequate
[2023-07-30 07:20] VITALS: BP 171/82; PULSE 81; RESP 16; TEMP 36.4; O2SAT 94
== END 2023-07-26 11:25 | disposition home or self-care (01) ==
PROVIDERS: PCP Internal Medicine; Visit Provider Surgery
PROC: (CPT 49592; principal; 2023-07-26 09:15)
DX: K43.6 Other and unspecified ventral hernia with obstruction, without gangrene (principal)
CPT/HCPCS: 49592; 96374; C1781; J2405

== ENCOUNTER 2023-10-05 07:21 | Outpatient (CLI) | payer MEDICARE, OTHER, SELFPAY ==
--- NOTE | 2023-10-05 07:21 | CT_ITS ---
FINAL REPORT TECHNIQUE: Before and after the administration of intravenous contrast, axial images were obtained through the abdomen and pelvis by computed tomography. The study was performed with techniques to keep radiation dose as low as reasonably achievable, (ALARA). Individual dose reduction techniques using automated exposure control or adjustment of mA and/or kV according to the patient's size were employed. CLINICAL HISTORY: liver mass follow-up COMPARISON: MRI liver dated 06/29/2023 FINDINGS: Precontrast-enhanced images reveal bulky calcified gallstones in the gallbladder and partial calcification of the wall of the gallbladder consistent with a partial porcelain gallbladder. Scarring is noted in the lung bases. Mild fatty infiltration of the liver is noted. There is subtle attenuation at the margin of the lateral segment of the left lobe of the liver seen best in delayed images. This density measures 2 x 1.3 cm in size, and is essentially stable since the prior MRI of June 2023. There is a small splenic artery aneurysm present measuring 10 x 13 mm in size, best seen on image #28 of series 6. The adrenals are normal. The pancreas is unremarkable. The kidneys enhance appropriately. A large amount of stool is present in the cecum. A pessary device is identified in the pelvis. IMPRESSION: Subtle attenuation at the margin of the lateral segment of the left lobe of the liver best seen on delayed images. This density measures 2 x 1.3 cm in size, and corresponds to the focus of abnormal signal seen on the prior MRI of June 2023. No change in size is noted. This likely represents a complex cyst. Bulky calcified gallstones are present in the gallbladder with partial calcification of the wall of the gallbladder, consistent with a partial porcelain gallbladder. A splenic artery aneurysm is identified in the left upper quadrant measuring 10 x 13 mm in size. Reviewed, Interpreted and Dictated by Evgeny Raymond MD Transcribed by Ludivina Ordoñez Authenticated and [facility]
[2023-10-05 07:53] LABS: Blood Urea Nitrogen 16 mg/dl (7-17); Estimated Glomerular Filt Rate 40 ml/min (>60); GFR (African American) 49 ML/MIN (>60)
[2023-10-05] MEDS: IOPAMIDOL-370 (76%);100ML BOTTLE 75 ML IV (08:47)
[2023-10-05] MEDS: SODIUM CHLORIDE 0.9% 10ML SYR (RAD ONLY) 10 ML IV (08:47)
== END 2023-10-05 23:59 ==
LOC: RAD 07:21
PROVIDERS: PCP Internal Medicine; Visit Provider Surgery
DX: R16.0 Hepatomegaly, not elsewhere classified (principal)
CPT/HCPCS: 36415; 74178; 82565; 84520; Q9967

== ENCOUNTER 2023-10-09 07:42 | Outpatient (CLI) | payer MEDICARE, OTHER, SELFPAY ==
--- NOTE | 2023-10-09 07:42 | US_ITS ---
FINAL REPORT TECHNIQUE: Multiple transverse and longitudinal images CLINICAL HISTORY: right upper quad pain COMPARISON: CT examination of the abdomen and pelvis 10/05/2023 FINDINGS: There is diffuse fatty infiltration of the liver. The lesion described in the CT examination of October 05 is not visualized on today's exam. Gallstones are present in the gallbladder without evidence of gallbladder wall thickening or biliary ductal dilatation. The common bile duct measures 2 mm in size, within normal limits. Limited views of the right kidney are unremarkable. IMPRESSION: Diffuse fatty infiltration of the liver. The lesion described in prior CT examination is not well-visualized on this examination, and would continue CT surveillance of the previously described liver lesion. Gallstones are present in the gallbladder without evidence of biliary ductal dilatation or wall thickening. Reviewed, Interpreted and Dictated by Soco Riley MD Transcribed by Ludivina Ordoñez Authenticated and [facility][1]
== END 2023-10-09 23:59 ==
LOC: RAD 07:42
PROVIDERS: PCP Internal Medicine; Visit Provider Surgery
DX: K80.20 Calculus of gallbladder without cholecystitis without obstruction (principal)
CPT/HCPCS: 76705

== ENCOUNTER 2024-10-07 07:29 | Day surgery (SDC) | payer MEDICARE, OTHER, SELFPAY ==
[2024-10-03 12:30] VITALS: BMI 33.4
[2024-10-07] MEDS: SODIUM CHLORIDE 0.9% 10ML FLUSH SYRINGE 10 ML IV (08:18)
[2024-10-07] MEDS: CYCLOPENTOLATE 2% OPHTH SOLN 2ML BOTTLE OP ×3 (08:25→08:35)
[2024-10-07] MEDS: PHENYLEPHRINE 2.5% OPHTH SOLN 2ML OP ×3 (08:25→08:35)
[2024-10-07] MEDS: TETRACAINE 0.5% OPTH SOL 15ML OP ×3 (08:25→08:35)
[2024-10-07 08:28] VITALS: BP 179/99; PULSE 79; RESP 18; TEMP 37.1; O2SAT 95
[2024-10-07 09:16] VITALS: BP 138/67; PULSE 77; RESP 18; O2SAT 96
[2024-10-07] MEDS: MIDAZOLAM 2MG/2ML VIAL 2 MG (09:16)
[2024-10-07] MEDS: TIMOLOL 0.5% OPTH SOLN 5ML OP (09:16)
[2024-10-07] MEDS: TOBRAMYCIN/DEX OPTH SUSP 2.5ML OP (09:16)
[2024-10-07] MEDS: LIDOCAINE 1% PF 2ML AMPULE 2 ML IJ (09:16)
[2024-10-07 09:21] VITALS: BP 122/61; PULSE 76; RESP 18; O2SAT 94
[2024-10-07 09:26] VITALS: BP 129/64; PULSE 78; RESP 18; O2SAT 95
[2024-10-07 09:31] VITALS: BP 130/70; PULSE 79; RESP 18; O2SAT 96
[2024-10-07 09:40] VITALS: BP 141/74; PULSE 77; RESP 18; TEMP 36.7; O2SAT 95
--- NOTE | 2024-10-07 11:43 | HMH.PROCNOTE ---
[facility] Procedure Note Date: 10/07/24 Time: 11:43 Procedure Note:: Preoperative Diagnosis: Cataract combined NS Cortical Complex [Left] Eye Postop diagnosis: same Operation: Microscopic phacoemulsification with intraocular lens implant [Left] Eye Specimen: None Blood Loss: None The patient was examined in the office with a complaint of poor vision in the [left] eye. The patient reports that this interferes with ADLs such as reading, watching TV and/or driving or the vision is like looking through a foggy haze and is very troubling. The patient was examined and found to have a visually significant cataract with best corrected vision of [20/400] by refraction and/or glare testing. Treatment options, risks and benefits were explained and the patient elected to have cataract surgery in an attempt to improve their vision. The patient had the eye anesthetized with topical tetracaine, the eye ways prepped and draped in the usual fashion for cataract surgery. A paracentesis and a temporal keratotomy were made. 0.2cc of 1% lidocaine PF was placed into the anterior chamber. And aqueous/viscoelastic exchange was done and a 360 degree capsulorexis was performed. Through hydrodissection and delineation with BSS on a cannula was done. The lens nucleus was phecoemulsified with CDE of [9.40]. Residual cortical material was removed using automated I&A The capsular bag was deepened with viscoelastica and a PCIOL was placed in the capsular bag with good centration and stability. Residual viscoelastic was removed using automated I&A. The keratotomy incision was hydrated with BSS on a cannula. The wound were checked and found to be water tight. IOP was checked digitally and adjusted as needed so as not to be too high. 1 drop of timolol 0.5%, ofloxacin, prednisolone acetate and ketorolac was instilled and eye shield taped over the eye. The patient was taken to recovery in good condition and will be seen postoperatively.
== END 2024-10-07 09:50 | disposition home or self-care (01) ==
PROVIDERS: PCP Internal Medicine; Visit Provider Ophthalmology
PROC: (CPT 66984; principal; 2024-10-07 10:30)
DX: H25.012 Cortical age-related cataract, left eye (principal)
CPT/HCPCS: 66984; J2250; V2632

== ENCOUNTER 2024-10-21 07:33 | Day surgery (SDC) | payer MEDICARE, OTHER, SELFPAY ==
[2024-10-20 12:12] VITALS: BMI 33.4
[2024-10-21 08:11] VITALS: BP 137/78; PULSE 85; RESP 18; TEMP 36.3; O2SAT 96
[2024-10-21] MEDS: TETRACAINE 0.5% OPTH SOL 15ML OP ×3 (08:17→08:28)
[2024-10-21] MEDS: PHENYLEPHRINE 2.5% OPHTH SOLN 2ML OP ×3 (08:17→08:28)
[2024-10-21] MEDS: CYCLOPENTOLATE 2% OPHTH SOLN 2ML BOTTLE OP ×3 (08:18→08:28)
[2024-10-21 09:37] VITALS: BP 129/75; PULSE 69; RESP 18; O2SAT 98
[2024-10-21] MEDS: SODIUM CHLORIDE 0.9% 10ML FLUSH SYRINGE 10 ML IV (09:37)
[2024-10-21] MEDS: MIDAZOLAM 2MG/2ML VIAL 1 MG IV (09:37)
[2024-10-21 09:42] VITALS: BP 120/68; PULSE 72; RESP 18; O2SAT 95
[2024-10-21] MEDS: TIMOLOL 0.5% OPTH SOLN 5ML OP (09:46)
[2024-10-21] MEDS: LIDOCAINE 1% PF 2ML AMPULE 2 ML IJ (09:46)
[2024-10-21] MEDS: TOBRAMYCIN/DEX OPTH SUSP 2.5ML OP (09:46)
[2024-10-21 09:47] VITALS: BP 118/65; PULSE 73; RESP 18; O2SAT 94
[2024-10-21 09:52] VITALS: BP 120/65; PULSE 75; RESP 18; O2SAT 95
[2024-10-21 10:02] VITALS: BP 147/87; PULSE 72; RESP 16; TEMP 36.6; O2SAT 98
--- NOTE | 2024-10-21 10:42 | HMH.PROCNOTE ---
[facility] Procedure Note Date: 10/21/24 Time: 10:42 Procedure Note:: Preoperative Diagnosis: Cataract combined NS Cortical Complex [Right] Eye Postop diagnosis: same Operation: Microscopic phacoemulsification with intraocular lens implant [Right] Eye Specimen: None Blood Loss: None The patient was examined in the office with a complaint of poor vision in the [right] eye. The patient reports that this interferes with ADLs such as reading, watching TV and/or driving or the vision is like looking through a foggy haze and is very troubling. The patient was examined and found to have a visually significant cataract with best corrected vision of [20/400] by refraction and/or glare testing. Treatment options, risks and benefits were explained and the patient elected to have cataract surgery in an attempt to improve their vision. The patient had the eye anesthetized with topical tetracaine, the eye ways prepped and draped in the usual fashion for cataract surgery. A paracentesis and a temporal keratotomy were made. 0.2cc of 1% lidocaine PF was placed into the anterior chamber. And aqueous/viscoelastic exchange was done and a 360 degree capsulorexis was performed. Through hydrodissection and delineation with BSS on a cannula was done. The lens nucleus was phecoemulsified with CDE of [8.50]. Residual cortical material was removed using automated I&A The capsular bag was deepened with viscoelastica and a PCIOL was placed in the capsular bag with good centration and stability. Residual viscoelastic was removed using automated I&A. The keratotomy incision was hydrated with BSS on a cannula. The wound were checked and found to be water tight. IOP was checked digitally and adjusted as needed so as not to be too high. 1 drop of timolol 0.5%, ofloxacin, prednisolone acetate and ketorolac was instilled and eye shield taped over the eye. The patient was taken to recovery in good condition and will be seen postoperatively.
--- NOTE | 2024-10-21 10:43 | HMH.PROCNOTE ---
[facility] Procedure Note Date: 10/21/24 Time: 10:43 Procedure Note:: Preoperative diagnosis: Posterior Opacification both eyes Postoperative diagnosis: same Operation: YAG Laser Capsulotomy The patient has undergone uneventful cataract surgery in the past. The patient has noticed that the vision has decreased from the previous good level postop. The patient reports that he/she is having trouble reading and/or driving or that glare is giving them a problem. On exam, the patient was found to have visually significant posterior capsular opacification. The treatment options, risks and benefits were explained and the patient elected to have YAG laser capsulotomy in an attempt to improve the vision. Of note, the best corrected visual acuity is in the 23/30 or worse range by refraction or glare testing. The eyes were dilated and 1 drop of 0.5% Iopidine applied. YAG laser energy was applied to the posterior capsular bag with good formation of an opening and no complications were noted. The patient will be seen back for follow up in 2 weeks. OD 37 pulses/184mj OS 35 pulses/177mj
== END 2024-10-21 10:08 | disposition home or self-care (01) ==
PROVIDERS: PCP Internal Medicine; Visit Provider Ophthalmology
PROC: (CPT 66821; principal; 2024-10-21 09:30)
DX: H25.011 Cortical age-related cataract, right eye (principal); H26.493 Other secondary cataract, bilateral
CPT/HCPCS: 66821; 66984; J2250; V2632

== ENCOUNTER 2025-03-09 09:01 | Outpatient (CLI) | payer MEDICARE, OTHER, SELFPAY ==
--- OUTSIDE RECORDS SUMMARY | 2025-03-09 09:04 | XMS_ITS | Encounter Summary ---
Author Organization Healthcare Address [address] [place] [address] Care Team Providers Care Mold Presser Name Role Phone Cristiano Rasmussen MD Primary Care Provider [phone]- [phone] Loki Michele DO Primary Care Provider [phone] Encounter Details Date Type Department Care Team (Late st Contact Info) Description 06/29/2023 Orders Only External Location [address] [place] [address] Lkoi Michele DO [address] [place], [place] [id number] Social History Tobacco Use Types Packs/Day Years Used Date Smoking Tobacco: Never Smokeless Tobacco: Never Comments No Sex and Gender Information Value Date Recorded Sex Assigned at Not on file Legal Sex Female 6:39 PM EDT Gender Identity Not on file Sexual Orientation Not on file documented as of this encounter Plan of Treatment Upcoming Encounters Date Type Department Care Team (Late st Contact Info) Description 06/22/2025 9:30 AM EDT Appointment [facility] [place] [address] Dianne Mcmahon [facility] [address] [place] [address] 06/22/2025 10:30 AM EDT Office Visit [facility] [address] [facility] [place] [id number] Maite Licea, [employer] [address] [facility] Dianne Mcmahon [address] [address] documented as of this encounter Procedures Procedure Name Priority Date/Time Associated Diagnosis Comments MR OUTSIDE IMAGES 06/29/2023 7:43 AM EDT documented in this encounter Results * MR transfer of outside films (06/29/2023 7:43 AM EDT) Anatomical Region Laterality Modality Magnetic Resonan ce 06/29/2023 7:43 AM EDT Loki Michele DO IMG MRI PROCEDURES Final Result documented in this encounter Visit Diagnoses Not on filedocumented in this encounter Additional Health Concerns Assessment Noted Time A fall risk assessment has been complete d for the patient 11/08/2022 10:21 AM EST documented as of this encounter Care Teams Mold Presser Relationship Specialty Start Date End Date Cristiano Rasmussen MD [address] [address] PCP - General 01/21/21 11/18/23 Loki Michele DO [address] [place] [address] PCP - General 11/19/23 documented as of this encounter
--- OUTSIDE RECORDS SUMMARY | 2025-03-09 09:04 | XMS_ITS | Data Portability ---
Author Organization [facility] [place] [facility]un[facility] ADMIN Address [address] [place] [id number] Assessment Encounter Date Assessment Date Assessment LastModified by Organization Details LastModified Time 05/29/2022 05/29/2022 Dated discussed with patient and drawn out on the white board. I have discussed her condition along with potential remedies. Remedies include a watch and wait approach, pessary and an abdominal sacral colposuspension , laparoscopic robotic with or without sling. The patient is considering her options at this time and will get back to me once she has decided. If she is interested in a pessary will refer her to Dr. Blanton. If she is interested in the surgical approach will refer her to Dr. Tate Lee or [facility] Specialist at [facility]. if the patient is being considered for surgical intervention, she may benefit from a UDS with pessary to determine if there is a more significant incontinence issue that might be unmasked by the surgery. Return to clinic p.r.n.. [email or web address] Not available 05/29/2022 15:44:40 Plan of Treatment Reminders Order Date Submit Date Provider Last Modified By Organization Details Last Modified Time Details Appointments None recorded. Lab urinalysis , dipstick 2021 022 [email or web address] [facility], [address] [facility], [address], [place], [address], 15:05:37 Referral None recorded. Procedures None recorded. Surgeries None recorded. Imaging None recorded. Medication Orders None recorded. Patient TargetsNo targets recorded. Patient InstructionsNo instructions recorded. Reason for Referral None Reported. Results Created Date Observation Date Name Description Value Unit Range Abnormal Flag Note LastModifiedBy Organization Detail LastModifiedTime 05/29/20 22 05/29/2022 urina lysis , dipst ick Leukocytes (reference range) negati ve Not Available [facility] [address] [place] [address] [address], [place], [address], 05/29/2022 14:20:14 05/29/20 22 05/29/2022 urina lysis , dipst ick Nitrite (reference range:) positi ve Not Available [address], [place], [address], 05/29/2022 14:20:14 05/29/20 22 05/29/2022 urina lysis , dipst ick Urobilinogen (reference range) 0.2 Not Available [facility] [address], [place], [address], 05/29/2022 14:20:14 05/29/20 22 05/29/2022 urina lysis , dipst ick Protein (reference range) negati ve Not Available [address], [place], [address], 05/29/2022 14:20:14 05/29/20 22 05/29/2022 urina lysis , dipst ick pH (reference range 5-8.5) 5.0 Not Available [address], [place], [address], 05/29/2022 14:20:14 05/29/20 22 05/29/2022 urina lysis , dipst ick Blood (reference range:) negati ve Not Available [address], [place], [address], 05/29/2022 14:20:14 05/29/20 22 05/29/2022 urina lysis , dipst ick Specific Bomont (reference range) 1.015 Not Available [facility] [address] [place] [address] [address], [place], [address], 05/29/2022 14:20:14 05/29/20 22 05/29/2022 urina lysis , dipst ick Ketone (reference range) negati ve Not Available [facility], [place], [address], 05/29/2022 14:20:14 05/29/20 22 05/29/2022 urina lysis , dipst ick Bilirubin (reference range) negati ve Not Available [address], [place], [address], 05/29/2022 14:20:14 05/29/20 22 05/29/2022 urina lysis , dipst ick Glucose (reference range) negati ve Not Available [address], [place], [address], 05/29/2022 14:20:14 05/29/20 22 05/29/2022 urina lysis , dipst ick Color (reference range: yellow-brown ) Yellow Not Available [address], [place], [address], 05/29/2022 14:20:14 Result Notes None recorded. Problems Name Problem SNOMED Code Status Onset Date Resolution Date Notes Provider Name and Address Organization Details Recorded Time Urge incontinence of urine 99472395 Active 2021 Armida hdez, [facility] [place] 15:02:48 Problem Notes None recorded. Medical Equipment None Reported. Allergies No known drug allergies Medications Name Sig Start Date Stop Date Status Note LastModified by Organization Details LastModified Time meloxicam 15 mg tablet active Not Available Not Available No t Available ibuprofen active Not Available Not Aleena ilable Not Available Vitals Date Recorded Body height Body mass index (BMI) Body weight Body temperature Systolic blood pressure Diastolic blood pressure Provider Name and Address Organization Details Last Updated DateTime 2 170.18 cm 34.3 kg/m2 10951.4 5 g 97.8 [degF] 130 mm[Hg] 70 mm[Hg] Cinthia Rowan [facility] [place] 2 14:15:05 Social History None recorded. Functional Status Question Answer Note LastModified by Organizat ion Details LastModified Time Do you use any illicit or recreational drugs? No [email or web address] Information not available 05/29/2022 What is your level of alcohol consumption? None [email or web address] Information not available 05/29/2022 Mental Status None recorded. Family History Nothing Reported Notes:Mother with h/o kidney failure Father with h/o heart failure Brother with h/o non Hogkins lymphoma Sister with h/o Parkinsons Medical History No medical history recorded. Gynecological HistoryNo gynecological history recorded. 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 Health Concerns Section Related Observation LastModified by Organization Detai ls LastModified Time None Recorded Concern Status LastModified by Organization Details LastModified Time None Recorded Advance Directives Directive None Recorded Payers Insurance Date Sequence Insurance Name Policy Number Policy Nair Covered Member ID Nair Member ID Guarantor Name 05/30/2022 1 [place] Ana Laura Tillman [id number] Ana Laura Tillman 05/29/2022 2 [employer] (MEDICARE SUPPLEMENT) Ana Laura Tillman [id number] Ana Laura Tillman Notes Date Note Type Note Provider Name and Address Organization Details Recorded Time 05/29/2022 text/html Patient seen in clinic today for a prolapsed bladder. Patient states that it :feels like it is hanging out. Patient has been experiencing urinary incontinence for over 1-year, wears X1-2 pads per day. Onset start over 6-12 months, she states it has gradually gotten worse. Symptoms include urinary frequency, nocturia 1-2X, and mild urinary incontinence. No hematuria or pain. Patient had first UTI a couple of years ago. Patient had vaginal hysterectomy in 1997. Patient was diagnosed with breast cancer in 2013. No prior urologist nor any recent labs/imaging. Patient has not tried any medications for incontinence. Vlad Olmedo MD [address] [facility], [place], [address], [facility] [place] [facility] [place] 05/29/2022 15:45:41 OBGyn Episode No OBEpisode recorded.
--- OUTSIDE RECORDS SUMMARY | 2025-03-09 09:04 | XMS_ITS | Data Portability ---
Author Organization KENJI - KELLEN [facility] [place] [facility] Address [address] [facility] [address] [place] [address] Assessment No assessment recorded. Plan of Treatment Reminders Order Date Submit Date Provider Last Modified By Organization Details Last Modified Time Details Appointments None recorded. Lab urinalysis panel, auto [facility]23 [facility], [address], [place], [address], 4 07:47:52 Referral None recorded. Procedures urodynamic testing, complex (PROC) 2023 024 sourav talley [facility], [address], [place], [address], 4 11:57:06 Surgeries sling operation for stress incontinen ce (SURG) 2023 024 API-830 [facility] (Surgery Scheduling), [address], [place], [address], 4 18:04:09 laparoscop ic sacrocolpo pexy (SURG) 2023 024 LM [facility] (Surgery Scheduling), [address], [place], [address], 4 16:03:18 Imaging None recorded. Medication Orders None recorded. Patient TargetsNo targets recorded. Patient Instructions Encounter Date Encounter Id Patient Instructions Last Modified By Organization Details Last Modified Time 09/13/2023 [id number] Plan for urodynamics testing with pessary. Patient is interested in considering sacrocolpopexy. Further recommendations to [facility] Not available 09/17/2023 07:47:02 11/28/2023 [id number] We have discusse d today her leakage issue and have discussed surgical and nonsurgical treatment options. After discussion, she would like to proceed with bladder neck suspension with the TOT procedure described in detail to her today. She is aware of risks and potential complications all discussed in detail with her today. She is also aware that this procedure entails the placement of a small strip of permanent mesh material. We discussed wrist benefits, an alternative to say Silvina Anderson. She's interested in pursuing surgical therapy. She understands the potential need for mashed. She understands with benefits and alternatives, including but not limited to bleeding, infection, recurrence, [email or web address] Not available 12/02/2023 11:59:10 Reason for Referral None Reported. Results Created Date Observation Date Name Description Value Unit Range Abnormal Flag Note LastModifiedBy Organization Detail LastModifiedTime 09/13/19 24 09/13/2023 urina lysis panel , auto Unknown Analyte Clean Catch Not Available [facility] [address], [place], [address], 09/13/2023 14:19:39 09/13/19 24 09/13/2023 urina lysis panel , auto Unknown Analyte Yellow Not Available [facility] [address] [place] [address] [address], [place], [address], 09/13/2023 14:19:39 09/13/19 24 09/13/2023 urina lysis panel , auto Unknown Analyte Clear Not Available [facility] [address], [place], [address], 09/13/2023 14:19:39 09/13/19 24 09/13/2023 urina lysis panel , auto Unknown Analyte 1.010 Not Available [facility] [address], [place], [address], 09/13/2023 14:19:39 09/13/19 24 09/13/2023 urina lysis panel , auto Unknown Analyte 1.003- 1.035 Not Available [facility] [address], [place], [address], 09/13/2023 14:19:39 09/13/19 24 09/13/2023 urina lysis panel , auto Unknown Analyte 6.0 Not Available [facility] [address], [place], [address], 09/13/2023 14:19:39 09/13/19 24 09/13/2023 urina lysis panel , auto Unknown Analyte 5.0-8. 0 Not Available [facility] [address], [place], [address], 09/13/2023 14:19:39 09/13/19 24 09/13/2023 urina lysis panel , auto Unknown Analyte 500 Yolanda/ul (++) Not Available [facility] [address], [place], [address], 09/13/2023 14:19:39 09/13/19 24 09/13/2023 urina lysis panel , auto Unknown Analyte Negati ve Not Available [facility] [address], [place], [address], 09/13/2023 14:19:39 09/13/19 24 09/13/2023 urina lysis panel , auto Unknown Analyte Negati ve Not Available [facility] [address], [place], [address], 09/13/2023 14:19:39 09/13/19 24 09/13/2023 urina lysis panel , auto Unknown Analyte Negati ve Not Available [facility] [address], [place], [address], 09/13/2023 14:19:39 09/13/19 24 09/13/2023 urina lysis panel , auto Unknown Analyte Negati ve Not Available [facility] [address], [place], [address], 09/13/2023 14:19:39 09/13/19 24 09/13/2023 urina lysis panel , auto Unknown Analyte Negati ve Not Available [facility] [address], [place], [address], 09/13/2023 14:19:39 09/13/19 24 09/13/2023 urina lysis panel , auto Unknown Analyte Normal Not Available [facility] [address], [place], [address], 09/13/2023 14:19:39 09/13/19 24 09/13/2023 urina lysis panel , auto Unknown Analyte Normal Not Available [facility] [address], [place], [address], 09/13/2023 14:19:39 09/13/19 24 09/13/2023 urina lysis panel , auto Unknown Analyte Negati ve Not Available [facility] [address], [place], [address], 09/13/2023 14:19:39 09/13/19 24 09/13/2023 urina lysis panel , auto Unknown Analyte Negati ve Not Available [facility] [address], [place], [address], 09/13/2023 14:19:39 09/13/19 24 09/13/2023 urina lysis panel , auto Unknown Analyte Normal Not Available [facility] [address], [place], [address], 09/13/2023 14:19:39 09/13/19 24 09/13/2023 urina lysis panel , auto Unknown Analyte Normal 1 mg/dl Not Available [facility] [address], [place], [address], 09/13/2023 14:19:39 09/13/19 24 09/13/2023 urina lysis panel , auto Unknown Analyte Negati ve Not Available [facility] [address], [place], [address], 09/13/2023 14:19:39 09/13/19 24 09/13/2023 urina lysis panel , auto Unknown Analyte Negati ve Not Available [facility] [address], [place], [address], 09/13/2023 14:19:39 09/13/19 24 09/13/2023 urina lysis panel , auto Unknown Analyte Negati ve Not Available [facility] [address], [place], [address], 09/13/2023 14:19:39 09/13/19 24 09/13/2023 urina lysis panel , auto Unknown Analyte Negati ve Not Available [facility] [address], [place], [address], 09/13/2023 14:19:39 12/28/19 24 12/28/2023 XR, chest , 2 view No observ ation record ed. [facility] [address] , [place], [address], 12/31/2023 12:44:38 Result Notes None recorded. 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 Procedures Surgical History Date Name Laterality Status Provider Name and Address Organization Details Recorded Time 01/01/20 LAPAROSCOPIC SACROCOLPOPEXY (SURG) completed Abhilash Dalton [facility] 01/02/2024 16:03:18 11/13/19 Urodynamics completed ALESSANDRA WORLEY MD [address] [place] [address], [address], [facility] 11/13/2023 16:10:34 09/13/19 24 Pessary cleaning completed DALILA PEREZ JR, MD [address] [place] [address], [address], [facility] 09/17/2023 07:46:14 hernia repair completed Armida Ordoñez [facility] 11/28/2023 08:12:01 Imaging Results None recorded. Procedure Notes None recorded. Medical Equipment None Reported. Allergies No known drug allergies Medications Name Sig Start Date Stop Date Status Note LastModified by Organization Details LastModified Time losartan 25 mg tablet Take 1 tablet every day by oral route. active Not Available Not Available No t Available hydrochlorothiaz marty 25 mg tablet Take 1 tablet every day by oral route. active Not Available Not Available No t Available oxycodone-acetam inophen 7.5 mg-325 mg tablet 2023 active Not Available Not Available Not Avai lable meloxicam active prn Not Available Not Aleena ilable Not Available Vitals Date Recorded Body height Body mass index (BMI) Body weight Provider Name and Address Organization Details Last Updated DateTime 11/28/2023 172.72 cm 33.5 kg/m2 04414.32 g Armida Ordoñez [facility] 11/28/2023 08:08:42 Social History Question Answer Notes LastModified by Bulu Box Details LastModified Time Tobacco Smoking Status Never Smoker Armida Ordoñez null, [facility] 11/28/2023 08:11:37 What Is Your Relationship Status? [email or web address] Information not available 11/28/2023 Sex: Unknown Functional Status Question Answer Note LastModified by Bulu Box Details LastModified Time What is your level of alcohol consumption? Occasional [email or web address] Information not available 11/28/2023 Mental Status None recorded. Family History Relationship Description Onset Age of this Age Resolved Age Notes LastModified by Organization Details LastModified Time Father No current problems or disability Not available 11/27 08:11:12 Mother No current problems or disability [email or web address] Not available 11/27 08:11:13 Medical History Condition Response Hernia Y Arthritis Y False Teeth Y Chemotherapy Y Bronchitis Y Hypertension Y Gynecological HistoryNo gynecological history recorded. Obstetrics History GPAL:G 0 P 0 0 0 0 Past Encounters Encounter ID Performer Location Encounter Start Date Encounter Closed Date Diagnosis/Indication Diagnosis SNOMED-CT Code Diagnosis ICD10 Code Diagnosis Note [id number] DALILA PEREZ JR, MD [facility] [address] [place] [address] 09/13/2023 13:28:01 09/18/2023 14:20:46 Vaginal vault prolapse 416637367 N81.89 Mixed urin giovanni incontinence 402447000 N39.46 [id number] ALESSANDRA WORLEY MD [facility] [address] [place] [address] 11/13/2023 13:31:56 11/13/2023 16:20:19 Female stress incontinence 44778178 N39.3 Stress incontinen ce noted with prolapse reduced. [id number] DALILA PEREZ JR, MD [facility] [address] [place] [id number] 11/28/2023 08:05:06 11/28/2023 15:15:29 Vaginal vault prolapse 117107542 N81.[address] ess incontinence 55030132 N39.3 Health Concerns Section Related Observation LastModified by Organization Detai ls LastModified Time None Recorded Concern Status LastModified by Organization Details LastModified Time None Recorded Advance Directives Directive None Recorded Payers Insurance Date Sequence Insurance Name Policy Number Policy Nair Covered Member ID Nair Member ID Guarantor Name 01/15/2024 2 [facility] (MEDICARE SUPPLEMENT) N Ana Laura Tillman [id number] Ana Laura Tillman 01/15/2024 1 [place] Ana Laura Tillman [id number] Ana Laura Tillman Notes Date Note Type Note Provider Name and Address Organization Details Recorded Time 09/13/2023 text/html Patient is in to day for evaluation of pelvic prolapse. She is a pleasant 73-year-old female who has pelvic prolapse that has been ongoing for the past year. She currently uses pessary and is desirous of surgical therapy. She often has to push the pessary back in as it falls out frequently. She has had hysterectomy. She does report mixed incontinence. DALILA PEREZ JR, MD [address] [place], [address], [facility] 09/17/2023 07:47:53 11/13/2023 text/html Urodynamics toda y for urinary incontinence patient planning on having prolapse surgery by sacrocolpopexy currently pessary in place reducing prolapse for stress incontinence evaluation today. ALESSANDRA WORLEY MD [address] [place] [address], [address], [facility] 11/13/2023 16:12:15 11/28/2023 text/html Patient is in to day for evaluation of pelvic prolapse. She is a pleasant 73-year-old female who has pelvic prolapse that has been ongoing for the past year. She currently uses pessary and is desirous of surgical therapy. She often has to push the pessary back in as it falls out frequently. She has had hysterectomy. She does report mixed incontinence. Urodynamics with pessary demonstrate stress urinary incontinence. She's interested in surgical therapy for vaginal prolapse and stress incontinence. Visit today is being conducted via telehealth using both audio/video. The patient confirms that he/she is physically located in [place] at the time of this visit. Patient expressed understanding of audio/video telehealth as a billable visit and has consented. Patient also expressed understanding that not every condition can be appropriately addressed via telehealth and that this telehealth visit may need to be converted to an in-person visit or may even result in a recommendation to go to the E.R. at the provider s discretion in order to provide the best possible care. DALILA PEREZ JR, MD [address] [place] [address], [phone], [facility] 12/02/2023 11:59:37 OBGyn Episode No OBEpisode recorded.
--- OUTSIDE RECORDS SUMMARY | 2025-03-09 09:04 | XMS_ITS | Clinical Summary ---
Author Organization [facility] Address [address] [place] [address] Care Team Providers Care Angiography Technologist Name Role Phone Loki Michele DO Primary Care Provider [phone] Allergies Active Allergy Reactions Criticality Noted Date Comments Amoxicillin Headache Low 11/08/2022 headaches Amoxicillin-Pot Clavulanate Headache Low 11/09/19 23 Lisinopril Cough Low 07/06/2023 headaches Medications meloxicam (Mobic) 15 MG tablet 1 (one) time each day if needed. 2 Active losartan (Cozaar) 25 MG tablet Take 1.5 tablets (37.5 mg) by mouth 1 (one) time each day in the evening. 4 Active rOPINIRole (Requip) 0.25 MG tablet at night if needed. 4 Active chlorthalidone (Hygroton) 25 MG tablet Take 0.5 tablets (12.5 mg) by mouth 1 (one) time each day. Active methocarbamol (Robaxin) 500 MG tablet Take 1 tablet (500 mg) by mouth 4 (four) times a day. 40 tablet 4 Active oxyCODONE (Roxicodone) 5 MG immediate release tablet Take 1 tablet (5 mg) by mouth every 6 (six) hours if needed for severe pain. 15 tablet 4 Active Additional Information Patient not taking.Reported on 08/04/2024 Active Problems Problem Noted Date Diagnosed Date S/P laparoscopic cholecystectomy 08/04/2024 PURCELL (nonalcoholic steatohepatitis) 07/30/2024 Restless leg syndrome 07/30/2024 Obesity (BMI 30.0-34.9) 06/16/2024 Abnormal MRI, liver 06/12/2024 Arthritis 06/12/2024 Osteoarthritis of right knee 06/12/2024 Osteoarthritis of left knee 06/12/2024 Epigastric hernia 06/12/2024 Migraine 06/12/2024 Obesity (BMI 30-39.9) 06/12/2024 Sinusitis 06/12/2024 UTI (urinary tract infection), bacterial Viral upper respiratory tract infection 06/12/20 Cholelithiasis 06/12/2024 Chronic kidney disease (CKD), stage III (moderat e) 01/02/2024 Pelvic floor relaxation 01/01/2024 HTN (hypertension), benign 12/28/2023 Urinary incontinence 12/28/2023 Calculus of gallbladder with out cholecystitis without obstruction 11/19/2023 Porcelain gallbladder 11/19/2023 Fatty liver 11/19/2023 Diastasis recti 11/19/2023 Mixed stress and urge urinary incontinence 09/17 Vaginal vault prolapse 09/17/2023 Malignant neoplasm of overla pping sites of left breast in female, estrogen receptor negative 05/05/2021 Cancer Staging:Clinical stage from 04/01/2014:Stage IIB(T2, N1, M0) - Unsigned Breast cancer 12/16/2014 Overview (11/15/2023): Malignant tumor of breast Immunizations Immunization Administration Dates Next Due Influenza Vaccine, Quadrivalent, Adjuvanted 06/11,07/08/2020 Influenza, High-dose, Split Virus, Trivalent, Injectable, preservative free 06/24/2024 Influenza, high-dose, quadrivalent 06/26/2023, Pneumococcal Conjugate PCV 13 08/11/2020 Pneumococcal Polysaccharide PPV23 08/16/2021 Family History Medical History Relation Name Comments Non-Hodgkin's lymphoma Brother FH: n on-Hodgkin's lymphoma Anesthesia problems Neg Hx Malig Hyperthermia Neg Hx Relation Name Status Comments Brother Social History Tobacco Use Types Packs/Day Years Used Date Smoking Tobacco: Never Smokeless Tobacco: Never Tobacco Cessation:Counseling Given: Not Answered Alcohol Use Standard Drinks/Week Comments Yes 0 (1 standard drink = 0.6 oz pur e alcohol) rarely PHQ-2 Answer Date Recorded Patient Health Questionnaire-2 Score 0 06/11/2024 Comments No Sex and Gender Information Value Date Recorded Sex Assigned at Not on file Legal Sex Female 6:39 PM EDT Gender Identity Not on file Sexual Orientation Not on file Last Filed Vital Signs Vital Sign Reading Time Taken Comments Blood Pressure 110/79 08/04/2024 11:00 AM EST Pulse 79 08/04/2024 11:00 AM EST Temperature 36.4 C (97.5 F) 08/04/2024 11:00 AM EST Respiratory Rate 15 07/17/2024 11:45 AM EST Oxygen Saturation 97% 08/04/2024 11:00 AM EST Inhaled Oxygen Concentration - - Weight 102 kg (224 lb 13.9 oz) 08/04/2024 11:00 AM EST Height 172.7 cm (5' 8 ) 08/04/2024 11:00 AM EST Body Mass Index 34.19 08/04/2024 11:00 AM EST Plan of Treatment Upcoming Encounters Date Type Department Care Team ([facility] st Contact Info) Description 06/22/2025 9:30 AM EDT Appointment [facility] Breast Care Center [facility] [address] [facility] [address] [place] [address] 06/22/2025 10:30 AM EDT Office Visit [facility] Breast Care Center [address] [facility] [place] [address] Maite Licea, PUBLIC HEALTH OUTREACH WORKER [address] [facility] [address] [place] [address] Health Maintenance Due Date Last Done Comments [facility]-Bone Density Scan 1950 [facility]-Hepatitis C Screening 1950 [facility]-Medicare Annual Wellness (AWV) 1950 [facility]-/Child/Adol SDOH Screenings 1950 [facility]- SDOH Screenings 1968 [facility]-Adult SDOH Screenings 1968 [facility]-DTaP,Tdap,and Td Vaccines (1 - Tdap) 1969 [facility]-Hepatitis A Vaccines (1 of 2 - Risk 2-dose series) 1969 [facility]-Zoster Vaccines (1 of 2) 1969 CT Colonography 1995 Colonoscopy 1995 FIT-DNA 1995 FIT 1995 FOBT 1995 Sigmoidoscopy 1995 [facility]-Colorectal Cancer Screening 1995 [facility]-RSV Vaccine: 60+ Years or (1 - Risk 60-74 years 1-dose series) 2010 [id number] Vaccine ( season) 2024 08/22/2022, 07/06/2021, 11/17/2020, Additional history exists [facility]-Depression Screening 06/11/2025 06/11/2024 [facility]-Pneumococcal Vaccine: 50+ Years Completed 08/16/2021, 08/11/2020 [facility]-Influenza Vaccine Completed 06/24/2024 , 06/26/2023, 06/30/2022, Additional history exists [facility]-Obesity Intervention Completed 08/04/2024 HPV Vaccines Aged Out No longer eligi ble based on patient's age to complete this topic [facility]-HIB Vaccines Aged Out No longer e ligible based on patient's age to complete this topic [facility]-IPV Vaccines Aged Out No longer e ligible based on patient's age to complete this topic [facility]-Rotavirus Vaccines Aged Out No lo nger eligible based on patient's age to complete this topic Medical Devices Implanted Type Area Founder Chairman And Chief Creative Officer Device Identifier Shelf Expiration Date Model / Serial / Lot Dental Dental Mouth Insurance MEDICARE [facility] Care Teams Angiography Technologist Relationship Specialty Start Date End Date Loki Michele DO [address] [place] [address] PCP - General 11/19/23
--- OUTSIDE RECORDS SUMMARY | 2025-03-09 09:04 | XMS_ITS | Encounter Summary ---
Author Organization Healthcare Address [address] [place] [id number] Care Team Providers Care Instructor Of Spanish Name Role Phone Cristiano Rasmussen MD Primary Care Provider [phone] Loki Michele DO Primary Care Provider [phone] Encounter Details Date Type Department Care Team (Late st Contact Info) Description 05/15/2023 Orders Only External Location [address] [place] [address] Arsenio Varela, ENGINEERING INSPECTION ASSISTANT [address] [place] [address] Social History Tobacco Use Types Packs/Day Years [...] Breast Care Center [facility] [place] [address] [address] [facility] [address] [place] [address] 06/22/2025 10:30 AM EDT Office Visit [facility] [address] [facility], [address]nd [place] [address] Maite Licea, ENGINEERING INSPECTION ASSISTANT [address] [facility] [address] [address] documented as of this encounter Procedures Procedure Name Priority Date/Time Associated Diagnosis Comments MAMMOGRAPHY OUTSIDE IMAGES UPLOAD 05/15/2023 9:45 AM EDT documented in this encounter Results * Mammography Outside Images Upload (05/15/2023 9:45 AM EDT) Anatomical Region Laterality Modality Mammography 05/15/2023 9:45 AM EDT us Arsenio Varela ENGINEERING INSPECTION ASSISTANT IMG BI PROCEDURES Final Res ult documented in this encounter Visit Diagnoses Not on filedocumented in this encounter Additional Health Concerns Assessment Noted Time A fall risk assessment has been complete d for the patient 11/08/2022 10:21 AM EST documented as of this encounter Care Teams Instructor Of Spanish Relationship Specialty Start Date End Date Cristiano Rasmussen MD [address] [place] [id number] PCP - General 01/21/21 11/18/23 Loki Michele DO [address] [place] [address] PCP - General 11/19/23 documented as of this encounter
--- OUTSIDE RECORDS SUMMARY | 2025-03-09 09:04 | XMS_ITS | Clinical Summary ---
Author Organization [employer] Address [address] [place] [address] Care Team Providers Care Local Company Refrigerated Truck Driver Name Role Phone Loki Michele DO Primary Care Provider [phone] [phone] Allergies Active Allergy Reactions Criticality Noted Date Comments Amoxicillin Other (See Comments) Low 12/28/2023 headaches Lisinopril Other (See Comments) 12/28/2023 headaches Medications hydroCHLOROthiaz marty (HYDRODIURIL) 25 MG tablet Take 1 tablet (25 mg total) by mouth daily. 12/12/2023 Active losartan (COZAAR) 25 MG tablet Take 1 tablet (25 mg total) by mouth daily. 12/12/2023 Active doxycycline (VIBRA-TABS) 100 MG tablet Take 1 tablet (100 mg total) by mouth 2 (two) times daily. 6 tablet 01/01/2024 Active Active Problems Problem Noted Date Diagnosed Date Chronic kidney disease (CKD), stage III (moderat e) 01/02/2024 Old laceration of muscles of pelvic floor 2023 ANTHONY (stress urinary incontinence, female) 2023 S/P robotic assisted laparos copic sacrocolpopexy with mesh, suburethral sling, transobturator approach with mesh 01/01/2024 S/P cystoscopy 01/01/2024 Preop examination 12/28/2023 BMI 33.0-33.9,adult 12/28/2023 HTN (hypertension) 12/28/2023 Urinary incontinence 12/28/2023 PONV (postoperative nausea and vomiting) 024 Hypertension Arthritis History of breast cancer s/p chemotherapy Obesity (BMI 30.0-34.9) Social History Tobacco Use Types Packs/Day Years Used Date Smoking Tobacco: Never Smokeless Tobacco: Never Tobacco Cessation:Counseling Given: Not Answered Alcohol Use Standard Drinks/Week Comments Never 0 (1 standard drink = 0.6 oz pur e alcohol) Food Insecurity Answer Date Recorded Food run out past 12 months Not on file 12/09 Food did not last past 12 months Not on file 12/20/2023 Employment Answer Date Recorded Help finding and keeping a job Not on file 0 12/20/2023 Family and Community Support Answer Brian e Recorded Help with Day to Day Activities Not on file 12/20/2023 Feeling Lonely or Isolated Not on file 12/19 Educational Attainment Answer Date Steven rded Speak language other than Armenian at home Not on file 12/20/2023 Want help with school or training Not on file 12/20/2023 Substance Use Answer Date Recorded Used prescription meds for non-medical reasons N ot on file 12/20/2023 Used illegal drugs past 12 months Not on file 12/20/2023 Comments Unknown Sex and Gender Information Value Date Recorded Sex Assigned at Not on file Legal Sex Female 8:32 AM CDT Gender Identity Not on file Sexual Orientation Not on file Last Filed Vital Signs Vital Sign Reading Time Taken Comments Blood Pressure 125/65 01/02/2024 2:25 PM EDT Pulse 66 01/02/2024 2:25 PM EDT Temperature 36.4 C (97.5 F) 01/02/2024 2:25 PM EDT Respiratory Rate 18 01/02/2024 2:25 PM EDT Oxygen Saturation 98% 01/02/2024 2:25 PM EDT Inhaled Oxygen Concentration - - Weight 101.6 kg (224 lb) 01/01/2024 11:00 AM EDT Height 172.7 cm (5' 8 ) 01/01/2024 11:00 AM EDT Body Mass Index 34.06 01/01/2024 11:00 AM EDT Plan of Treatment Health Maintenance Due Date Last Done Comments CT Colonography 1950 Colonoscopy 1950 Colorectal Cancer Screening 1950 DXA SCAN 1950 FOBT/FIT 1950 Fit-DNA (Cologuard) 1950 Sigmoidoscopy 1950 Depression Screening (12+) 1962 Hepatitis C Screening 1968 DTAP/TDAP/TD VACCINES (1 - Tdap) 1969 Shingles Vaccine (Zoster) (1 of 2) 2000 Medicare Initial AWV G0438 05/12/2016 COVID-19 VACCINE (5 - 4-2 5 season) 2024 08/22/2022, 07/06/2021, 11/17/2020, Additional history exists Falls Risk Screening 09/10/2024 Breast Cancer Screening 11/08/2024 11/09/19, 05/11/2022, 05/11/2022, Additional history exists Tobacco Cessation Counseling and Screening (12+) 12/31/2024 01/01/2024 Influenza Vaccine (Season Ended) 2025 06/26/2023, 06/30/2022, 07/01/2021, Additional history exists Respiratory Syncytial Virus (RSV) Adult or (1 - 1-dose 75+ series) 2025 Pneumococcal 50+ years Completed 08/16/2021, 2019 Medical Devices Implanted Type Area Supervisor Gluing Device Identifier Shelf Expiration Date Model / Serial / Lot Mesh Y Nylon [id number] - [id number] Implanted:Qty : 1 on 01/01/2024 by Miles Ybarra Jr., MD at [facility] IMPLANTS N/A: Pelvis [place] [employer]:UROLOGY/GYNE COLOGY 07/10/2026 [id number] 00 / / [id number] Sling Sys Mid-Ureth Obtryx Sgl [id number] - [id number] Implanted:Qty : 1 on 01/01/2024 by Miles Ybarra Jr., MD at [facility] IMPLANTS N/A: Pelvis [place] [employer]:UROLOGY/GYNE COLOGY 09/20/2026 [id number] / / [id number] Insurance [id number] [place] [id number] MEDICARE PART A B Care Teams Local Company Refrigerated Truck Driver Relationship Specialty Start Date End Date Loki Michele DO PCP - General Internal Medicine 01/01/24
--- OUTSIDE RECORDS SUMMARY | 2025-03-09 09:04 | XMS_ITS | Referral Summary ---
Author Organization [employer] Address [address] [address] Care Team Providers Care Lead Neurodiagnostic Technologist Name Role Phone Loki Michele DO Primary Care Provider [phone] Allergies Active Allergy Reactions Criticality Noted Date [...] Date Steven rded Speak language other than Montenegrin at home Not on file 12/20/2023 Want [...] 01/01/2024 11:00 AM EDT Plan of Treatment Not on file Medical Devices Implanted Type Area Director Sales Training Device Identifier Shelf Expiration Date Model / Serial / Lot Mesh Y Nylon [id number] - [id number] Implanted:Qty : 1 on 01/01/2024 by Miles Ybarra Jr., MD at [facility] IMPLANTS N/A: Pelvis [place] [employer]:UROLOGY/GYNE COLOGY 07/10/2026 [id number] 00 / / [id number] Sling Sys Mid-Ureth Obtryx Sgl [id number] - [id number] Implanted:Qty : 1 on 01/01/2024 by Miles Ybarra Jr., MD at [facility] IMPLANTS N/A: Pelvis [place] [employer]:UROLOGY/GYNE COLOGY 09/20/2026 [id number] / / [id number] Insurance MEDICARE PART A B Care Teams Lead Neurodiagnostic Technologist Relationship Specialty Start Date End Date Loki Michele DO PCP - General Internal Medicine 01/01/24
--- NOTE | 2025-03-09 09:05 | XR_ITS ---
FINAL REPORT CLINICAL HISTORY: knee pain COMPARISON: 10/13/2022 FINDINGS: LEFT KNEE 3 views of the left knee were obtained. There is no acute fracture or dislocation. There are moderate hypertrophic changes along the lateral articular facet of the patellofemoral joint. Moderate joint space narrowing is noted. Soft tissues are unremarkable. IMPRESSION: Moderate changes of osteoarthritis, particularly at the lateral articular facet of the patellofemoral joint. Reviewed, Interpreted and Dictated by Evgeny Raymond MD Transcribed by Anamika Coe Authenticated and [facility]
--- NOTE | 2025-03-09 09:05 | XR_ITS ---
FINAL REPORT CLINICAL HISTORY: knee pain..pt has had shots in knee COMPARISON: 10/13/2022 FINDINGS: RIGHT KNEE 3 views of the right knee were obtained. There is no acute fracture or dislocation. There are mild hypertrophic changes along the medial joint margin. There is moderate joint space narrowing along the lateral articular facet of the patellofemoral joint. Osteophytes are noted along the lateral margin of the patella. Soft tissues are unremarkable. IMPRESSION: [id number]-bbcakyct changes of osteoarthritis, particularly at the lateral articular facet of the patellofemoral joint. Reviewed, Interpreted and Dictated by Evgeny Raymond MD Transcribed by Anamika Coe Authenticated and [facility]
== END 2025-03-09 23:59 | disposition home or self-care (01) ==
LOC: RAD 09:03
PROVIDERS: PCP Family Medicine; Visit Provider Physician Assistant Surgical
DX: M17.0 Bilateral primary osteoarthritis of knee (principal)
CPT/HCPCS: 73562

== ENCOUNTER 2025-04-16 07:51 | Outpatient (CLI) | payer MEDICARE, OTHER, SELFPAY ==
--- OUTSIDE RECORDS SUMMARY | 2025-04-16 07:53 | XMS_ITS | Referral Summary ---
Author Organization [employer] ([place], [place], [place], [place]) Address [address] [place] [address] Care Team Providers Care Marketing Assistant Name Role Phone Loki Michele DO Primary Care Provider [phone] Allergies Active Allergy Reactions Criticality Noted Date [...] on file Medical Devices Implanted Type Area Furnace Helper Device Identifier Shelf Expiration Date Model / Serial / Lot Mesh Y Nylon [id number] - [id number] Implanted:Qty : 1 on 01/01/2024 by Miles Ybarra Jr., MD at [facility] IMPLANTS N/A: Pelvis [place] [employer]:UROLOGY/GYNE COLOGY 07/10/2026 [id number] 00 / / [id number] Sling Sys Mid-Ureth Obtryx Sgl [id number] - [id number] Implanted:Qty : 1 on 01/01/2024 by Miles Ybarra Jr., MD at [facility] IMPLANTS N/A: Pelvis [place] [employer]:UROLOGY/GYNE COLOGY 09/20/2026 [id number] 00 / / [id number] Insurance MEDICARE PART A B Care Teams Marketing Assistant Relationship Specialty Start Date End Date Loki Michele DO PCP - General Internal Medicine 01/01/24
--- OUTSIDE RECORDS SUMMARY | 2025-04-16 07:53 | XMS_ITS | Clinical Summary ---
Author Organization [facility] Address [address] [place] [address] Care Team Providers Care Tin Roller Hot Mill Name Role Phone Loki Michele DO Primary Care Provider [phone] Allergies Active Allergy Reactions Criticality Noted Date [...] Upcoming Encounters Date Type Department Care Team ([facility] st Contact Info) Description 06/22/2025 9:30 AM EDT Appointment [facility] Breast Care Center Comprehensive [facility] [address] [facility] [address] [place] [address] 06/22/2025 10:30 AM EDT Office Visit [facility] Breast Care Center [address] [facility] [place] [address] Maite Licea, [employer] [address] [facility] [address] [place] [address] Health Maintenance Due Date Last Done Comments [...] - Risk 60-74 years 1-dose series) 2010 [id number] Vaccine ( season) 2024 08/22/2022, 07/06/2021, 11/17/2020, Additional history exists [facility]-Influenza Vaccine (#1) 05/11/202506/24, 06/26/2023, 06/30/2022, Additional history exists [facility]-Depression Screening 06/11/2025 06/11/2024 [facility]-Pneumococcal Vaccine: 50+ Years Completed 08/16/2021, 08/11/2020 [facility]-Obesity Intervention Completed 08/04/2024 HPV Vaccines Aged [...] this topic Medical Devices Implanted Type Area Cane Burner Device Identifier Shelf Expiration Date Model / Serial / Lot Dental Dental Mouth Insurance MEDICARE [facility] Care Teams Tin Roller Hot Mill Relationship Specialty Start Date End Date Loki Michele DO [address] [place] [address] PCP - General 11/19/23
--- OUTSIDE RECORDS SUMMARY | 2025-04-16 07:53 | XMS_ITS | Encounter Summary ---
Author Organization [facility] Address [address] [place] [address] Care Team Providers Care Fabrication Engineer Name Role Phone Cristiano Rasmussen MD Primary Care Provider [phone]- [phone] Loki Michele DO Primary Care Provider [phone] Encounter Details Date Type Department Care Team (Late st Contact Info) Description 06/29/2023 Orders Only External Location [address] [place] [address] Loki Michele DO [address] [place], [place] [id number] Social History Tobacco Use Types Packs/Day Years [...] Breast Care Center [facility] [place] [address] [address] [facility] [address] [place] [address] 06/22/2025 10:30 AM EDT Office Visit [facility] [address] [facility] [place] [address] Maite Licea, STAFFING RECRUITER [address] [facility] [address] [address] documented as of this encounter [...] documented as of this encounter Care Teams Fabrication Engineer Relationship Specialty Start Date End Date Cristiano Rasmussen MD [address] [address] PCP - General 01/21/21 11/18/23 Loki Michele DO [address] [place] [address] PCP - General 11/19/23 documented as of this encounter
--- OUTSIDE RECORDS SUMMARY | 2025-04-16 07:53 | XMS_ITS | Clinical Summary ---
Author Organization [employer] ([place], [place], [place], [place]) Address [address] [place] [address] Care Team Providers Care Vault Keeper Name Role Phone Loki Michele DO Primary Care Provider [phone] Allergies Active Allergy Reactions Criticality Noted Date [...] Date Steven rded Speak language other than Chilean at home Not on file 12/20/2023 Want [...] AWV G0438 05/12/2016 COVID-19 VACCINE (5 - 2023-2 5 season) 2024 08/22/2022, 07/06/2021, 11/17/2020, Additional history exists Falls Risk Screening 09/10/2024 Breast Cancer Screening 11/08/2024 11/09/19, 05/11/2022, 05/11/2022, Additional history exists Tobacco Cessation Counseling and Screening (12+) 12/31/2024 01/01/2024 Influenza Vaccine (#1) 2025 , 06/30/2022, 07/01/2021, Additional history exists Respiratory Syncytial Virus (RSV) Adult or (1 - 1-dose 75+ series) 2025 Pneumococcal 50+ years Completed 08/16/2021, 2019 Medical Devices Implanted Type Area Car Pincher Device Identifier Shelf Expiration Date Model / Serial / Lot Mesh Y Nylon [id number] - [id number] Implanted:Qty : 1 on 01/01/2024 by Miles Ybarra Jr., MD at [facility] IMPLANTS N/A: Pelvis [place] [employer]:UROLOGY/GYNE COLOGY 07/10/2026 [id number] 00 / / [id number] Sling Sys Mid-Ureth Obtryx Sgl [id number] - [id number] Implanted:Qty : 1 on 01/01/2024 by Miles Ybarra Jr., MD at [facility] IMPLANTS N/A: Pelvis [place] [employer]:UROLOGY/GYNE COLOGY 09/20/2026 [id number] / / [id number] Insurance MEDICARE PART A B Care Teams Vault Keeper Relationship Specialty Start Date End Date Loki Michele DO PCP - General Internal Medicine 01/01/24
--- OUTSIDE RECORDS SUMMARY | 2025-04-16 07:53 | XMS_ITS | Encounter Summary ---
Author Organization [facility] Address [address] [place] [id number] Care Team Providers Care Rn Faculty Name Role Phone Cristiano Rasmussen MD Primary Care Provider [phone]- [phone] Loki Michele DO Primary Care Provider [phone] Encounter Details Date Type Department Care Team (Late st Contact Info) Description 05/15/2023 Orders Only External Location [address] [place] [address] Arsenio Varela, ARTISTS' MODEL [address] [place] [address] Social History Tobacco Use Types Packs/Day Years [...] Breast Care Center [facility] [place] [address] [address] [facility] [address] [place] [address] 06/22/2025 10:30 AM EDT Office Visit [facility] [address] [facility], [address] [place] [address] Maite Licea, ARTISTS' MODEL [address] [facility] [address] [address] documented as of this encounter Procedures Procedure Name Priority Date/Time Associated Diagnosis Comments MAMMOGRAPHY OUTSIDE IMAGES UPLOAD 05/15/2023 9:45 AM EDT documented in this encounter Results * Mammography Outside Images Upload (05/15/2023 9:45 AM EDT) Anatomical Region Laterality Modality Mammography 05/15/2023 9:45 AM EDT us Arsenio Varela ARTISTS' MODEL IMG BI PROCEDURES Final Res ult documented in this encounter Visit Diagnoses Not on filedocumented in this encounter Additional Health Concerns Assessment Noted Time A fall risk assessment has been complete d for the patient 11/08/2022 10:21 AM EST documented as of this encounter Care Teams Rn Faculty Relationship Specialty Start Date End Date Cristiano Rasmussen MD [address] [place] [id number] PCP - General 01/21/21 11/18/23 Loki Michele DO [address] [place] [address] PCP - General 11/19/23 documented as of this encounter
[2025-04-16 08:26] LABS: Hematocrit 44.0 % (37.0-47.0); Hemoglobin 15.0 g/dL (12.2-16.2); Immature Granulocytes % 0.3 %; Mean Corpuscular HGB Conc 34.1 g/dL (31.8-35.4); Mean Corpuscular Hemoglobin 30.5 pg (27.0-31.2); Mean Corpuscular Volume 89.6 fl (81-99); Nucleated Red Blood Cells % 0 %; Platelet Count 305 K/mm3 (142-424); Red Blood Count 4.91 M/mm3 (4.20-5.40); Red Cell Distribution Width-SD 41.8 fL; White Blood Count 8.6 K/mm3 (4.8-10.8)
[2025-04-16 08:51] LABS: Albumin Level 4.1 g/dl (3.5-5.0); Chloride 104 mmol/L (98-107); Potassium 4.6 mmoL/L (3.5-5.1); Sodium 134 mmol/L (136-145)
[2025-04-16 08:53] LABS: Blood Urea Nitrogen 27 mg/dl (7-17); Creatinine,Serum 1.10 mg/dl (0.52-1.04); Estimated Glomerular Filt Rate 49 ml/min (>60); GFR (African American) 59 ML/MIN (>60)
[2025-04-16 08:54] LABS: Alanine Aminotransferase 15 U/L (12-78); Albumin/Globulin Ratio 1.9 (1.1-1.8); Alkaline Phosphatase 54 U/L (38-126); Anion Gap 9.6 mEq/L (5-15); Aspartate Amino Transferase 26 U/L (14-36); Bilirubin,Total 1.4 mg/dl (0.2-1.3); Calcium 9.3 mg/dl (8.4-10.2); Carbon Dioxide 25 mmol/L (22.0-30.0); Cholesterol 150 mg/dl (140-200); Globulin 2.2 g/dL (1.3-3.2); Glucose 97 mg/dl (74-100); HDL Cholesterol 71 mg/dl (40-60); Total Protein,Serum 6.3 g/dl (6.3-8.2); Triglycerides 53 mg/dl (30-150)
[2025-04-16 09:24] LABS: Thyroid Stimulating Hormone 0.92 uIU/mL (0.465-4.68)
== END 2025-04-16 23:59 | disposition home or self-care (01) ==
LOC: LAB 07:52
PROVIDERS: PCP Nurse Practitioner Family; Visit Provider Nurse Practitioner Family
DX: I10 Essential (primary) hypertension (principal); E66.9 Obesity, unspecified; R53.83 Other fatigue
CPT/HCPCS: 36415; 80053; 80061; 84443; 85025